=== PATIENT | female | born 1985 | race Caucasian/White ===

== ENCOUNTER 2021-11-15 13:08 | Outpatient (REF) | payer OTHER, SELFPAY ==
[2021-11-15 16:32] LABS: Syphilis Screen Nonreactive (Nonreactive)
[2021-11-16 04:40] LABS: CT PCR NOT DETECTED (Not Detect.); NG PCR NOT DETECTED (Not Detect.)
[2021-11-16 13:03] LABS: BV Int Neg Control Negative (Negative); BV Int Pos Control Positive (Positive)
[2021-11-17 07:56] LABS: HBsAGNum1 0.67 S/CO (0.00-0.99); HIV AB/AG Nonreactive (Nonreactive); HIV Num 1 0.08 S/CO (0.00-0.99); Hepatitis B Surface Antigen Negative (Negative)
[2021-11-17 08:31] LABS: ~HepC Num1 0.07 S/CO (0.00-0.79); ~Hepatitis C Antibody Nonreactive (Nonreactive)
[2021-11-18 09:36] LABS: HPV mRNA E6/E7 rflx Not Detected (Not Detected)
== END 2021-11-15 13:09 | disposition home or self-care (01) ==
LOC: HO.LAB 13:08
PROVIDERS: PCP Internal Medicine; Visit Provider Advanced Practice Midwife
DX: Z01.419 Encounter for gynecological examination (general) (routine) without abnormal findings (principal); Z11.51 Encounter for screening for human papillomavirus (HPV); Z20.2 Contact with and (suspected) exposure to infections with a predominantly sexual mode of transmission; Z87.42 Personal history of other diseases of the female genital tract; Z80.3 Family history of malignant neoplasm of breast
CPT/HCPCS: 36415; 86780; 86803; 87340; 87389; 87480; 87491; 87510; 87591; 87624; 87660; 88142

== ENCOUNTER 2021-12-31 07:44 | Outpatient (REF) | payer OTHER, SELFPAY ==
--- NOTE | ~2021-12-31 | MM_ITS ---
EXAMINATION: MM SCREENING DIGITAL BREAST TOMOSYNTHESIS, BILATERAL CLINICAL INFORMATION: Screening. Asymptomatic. Age 36. No prior breast imaging. Psoriasis including dermal involvement anterior breasts. Family history breast cancer, mother (40's), cousin (40). The lifetime risk of breast cancer based on the Tyrer-Cuzick Model is 40%. COMPARISON: None (current study represents initial baseline exam). TECHNIQUE: Digital breast tomosynthesis is performed in both the craniocaudal and mediolateral oblique views along with computer-aided detection (CAD). Synthesized 2D images are generated from the tomosynthesis. Additional bilateral exaggerated CC views are provided. FINDINGS: The breasts are extremely dense, which lowers the sensitivity of mammography (ACR BI-RADS breast composition Category d). There are no significant masses, abnormal calcifications, or other abnormalities. There is symmetric coarsening stromal markings bilateral axilla versus accessory fibroglandular tissue. No adenopathy. MM/MM tomosynthesis screening BI IMPRESSION: No mammographic evidence of malignancy. ASSESSMENT: BI-RADS 2: Benign RECOMMENDATION: 1. Routine annual mammography screening. 2. The lifetime risk of breast cancer based on the Tyrer-Cuzick Model is 40%. Additional annual adjunct screening with breast MRI may be of benefit in women with a risk score of 20% or greater and dense breast parenchymal pattern on mammography. This patient's information was entered into a reminder system with a target due date for their next mammogram.
== END 2021-12-31 07:45 | disposition home or self-care (01) ==
LOC: HO.MAMMO 07:44
PROVIDERS: PCP Internal Medicine; Visit Provider Advanced Practice Midwife
DX: Z12.31 Encounter for screening mammogram for malignant neoplasm of breast (principal)
CPT/HCPCS: 77063; 77067

== ENCOUNTER 2022-02-14 07:49 | Outpatient (REF) | payer OTHER, SELFPAY ==
--- NOTE | ~2022-02-14 | MR_ITS ---
EXAMINATION: MR BREAST WITHOUT AND WITH CONTRAST, BILATERAL CLINICAL INFORMATION: High-risk screening. COMPARISON: No previous breast MRI. TECHNIQUE: Imaging was performed with a dedicated breast coil. Prior to the administration of contrast, bilateral axial T1 and bilateral axial T2 weighted sequences were obtained. After the uneventful administration of?6 mL of Gadavist, dynamic contrast-enhanced VIBRANT series through the breasts in the axial plane were performed. Subtracted images were performed and reviewed. A delayed sagittal sequence through both breasts was acquired. Additionally, CAD post-processing, including maximum intensity projections, 3-D reconstructions and kinetic analysis, were performed at an independent workstation and reviewed by the interpreting radiologist is a portion of this exam. FINDINGS: There is moderate significant background parenchymal enhancement. LEFT BREAST: There is diffuse background parenchymal enhancement in combination with innumerable foci of enhancement. This somewhat limits the evaluation. In the 3 o'clock position of the left breast, 6.1 cm from the nipple, there is a focus of enhancement measuring 0.4 cm size with somewhat indistinct margins (image 62, series 100). No T2 correlate. Finding demonstrates type II or plateau-type enhancement. Finding is considered indeterminate. MRI guided biopsy is recommended. No other suspicious non-mass or mass enhancement. Review of the T2-weighted images demonstrates a few scattered T2 hyperintense structures which are mostly subcentimeter in size and consistent with cysts. Review of the kinetic images demonstrates no additional suspicious findings. RIGHT BREAST: Similar to the left breast, there is diffuse background parenchymal enhancement in combination with scattered foci of enhancement. In the 5 o'clock position of the right breast, 2.5 cm from the nipple, there is an oval enhancing focus measuring up to 0.5 cm in size (image 74, series 100). This finding demonstrates plateau or type II enhancement. Finding is indeterminate. MRI guided biopsy is recommended for further evaluation. No other suspicious non-mass or mass enhancement within the right breast. Review of the T2-weighted images demonstrates scattered subcentimeter high signal intensity structures consistent with cysts. Review of the kinetic images demonstrates no additional suspicious findings. There is no suspicious internal mammary chain or axillary adenopathy. Limited views of the chest and abdomen are unremarkable. MR/MR breast BI wo/w con IMPRESSION: 1. Indeterminate focus of enhancement, left breast, 3 o'clock. 2. Indeterminate focus of enhancement, right breast, 5 o'clock. ASSESSMENT: LEFT BREAST: BI-RADS 4 - Suspicious abnormality - Biopsy should be considered. RIGHT BREAST: BI-RADS 4 - Suspicious abnormality - Biopsy should be considered. RECOMMENDATIONS: Bilateral MRI guided biopsy. Recommendations called in to Arnold Wise RN at 8:33 AM on 02/17/2022.
== END 2022-02-14 07:50 | disposition home or self-care (01) ==
LOC: HO.MRI 07:49
PROVIDERS: Visit Provider Advanced Practice Midwife
DX: Z12.31 Encounter for screening mammogram for malignant neoplasm of breast (principal); Z87.42 Personal history of other diseases of the female genital tract; Z80.3 Family history of malignant neoplasm of breast
CPT/HCPCS: 77049; A9585

== ENCOUNTER 2022-03-04 07:29 | Outpatient (REF) | payer OTHER, SELFPAY ==
--- NOTE | ~2022-03-04 | MR_ITS ---
EXAMINATION: MR GUIDED VACUUM-ASSISTED CORE BIOPSY BREAST, BILATERAL MM DIGITAL MAMMOGRAPHY POST BIOPSY, BILATERAL CLINICAL INFORMATION: 36-year-old with recent high risk screening MRI showing indeterminate focus of enhancement posterior 3:00 left breast and indeterminate focus of enhancement anterior 5:00 right breast. COMPARISON: Baseline digital breast tomosynthesis 12/31/2021, high risk screening breast MRI 02/14/2022. TECHNIQUE/PROCEDURE: Informed consent was obtained from the patient after discussion of the benefits, risks, and alternatives to biopsy today. Patient appeared to understand. Gave opportunity for questions. Patient signed consent form. Biopsy is performed under MRI guidance using breast surface coil. Imaging is performed without and with use of 5.5 mL Gadavist gadolinium contrast. [email or web address] introducer localization system is used with grid. LEFT BREAST: LESION: Focus of enhancement posterior 3:00, type II kinetics. LOCAL ANESTHESIA: 7 mL carbonated 1% lidocaine; 10 mL 1% lidocaine with epinephrine. NEEDLE: [employer] Atec 9-gauge vacuum assisted core biopsy device. APPROACH: Lateral medial. CORES: 8. CLIP: TriMark Spool/barbell shaped. RIGHT BREAST: Separate new biopsy supplies used for second site. LESION: Focus of enhancement anterior 5:00. LOCAL ANESTHESIA: : 7 mL carbonated 1% lidocaine; 10 mL 1% lidocaine with epinephrine. NEEDLE: [employer]s Atec 9-gauge vacuum assisted core biopsy device. APPROACH: Lateral medial. CORES: 8. CLIP: TriMark cylinder shaped. POSTPROCEDURE DIGITAL MAMMOGRAM, BILATERAL: Mammography is performed using digital mammography in bilateral CC and bilateral MLviews. The breasts are extremely dense, which lowers the sensitivity of mammography (ACR BI-RADS breast composition Category d). The left and right clip markers are deployed and in expected position. No gross hematoma. The patient tolerated the procedure well. No immediate complications. Home instructions reviewed with the patient. Final pathology results are pending. MR/MR guided breast biopsy RT IMPRESSION: 1. Status post MRI guided vacuum-assisted core biopsy bilateral breast with bilateral clip placement. 2. Final pathology results pending. An addendum report will be issued.
--- NOTE | ~2022-03-04 | MR_ITS ---
EXAMINATION: MR GUIDED VACUUM-ASSISTED CORE BIOPSY BREAST, BILATERAL MM DIGITAL MAMMOGRAPHY POST BIOPSY, BILATERAL CLINICAL INFORMATION: 36-year-old with recent high risk screening MRI showing indeterminate focus of enhancement posterior 3:00 left breast and indeterminate focus of enhancement anterior 5:00 right breast. COMPARISON: Baseline digital breast tomosynthesis 12/31/2021, high risk screening breast MRI 02/14/2022. TECHNIQUE/PROCEDURE: Informed consent was obtained from the patient after discussion of the benefits, risks, and alternatives to biopsy today. Patient appeared to understand. Gave opportunity for questions. Patient signed consent form. Biopsy is performed under MRI guidance using breast surface coil. Imaging is performed without and with use of 5.5 mL Gadavist gadolinium contrast. [employer] introducer localization system is used with grid. LEFT BREAST: LESION: Focus of enhancement posterior 3:00, type II kinetics. LOCAL ANESTHESIA: 7 mL carbonated 1% lidocaine; 10 mL 1% lidocaine with epinephrine. NEEDLE: SurT-Quad 22 Atec 9-gauge vacuum assisted core biopsy device. APPROACH: Lateral medial. CORES: 8. CLIP: TriMark Spool/barbell shaped. RIGHT BREAST: Separate new biopsy supplies used for second site. LESION: Focus of enhancement anterior 5:00. LOCAL ANESTHESIA: : 7 mL carbonated 1% lidocaine; 10 mL 1% lidocaine with epinephrine. NEEDLE: Suros Atec 9-gauge vacuum assisted core biopsy device. APPROACH: Lateral medial. CORES: 8. CLIP: TriMark cylinder shaped. POSTPROCEDURE DIGITAL MAMMOGRAM, BILATERAL: Mammography is performed using digital mammography in bilateral CC and bilateral MLviews. The breasts are extremely dense, which lowers the sensitivity of mammography (ACR BI-RADS breast composition Category d). The left and right clip markers are deployed and in expected position. No gross hematoma. The patient tolerated the procedure well. No immediate complications. Home instructions reviewed with the patient. Final pathology results are pending. MR/MR guided breast biopsy LT IMPRESSION: 1. Status post MRI guided vacuum-assisted core biopsy bilateral breast with bilateral clip placement. 2. Final pathology results pending. An addendum report will be issued.
[2022-03-04] MEDS: Lidocaine HCl 1 % MPF 5 ML VIAL SUBCUT ×3 (10:19→10:21)
[2022-03-04] MEDS: Sodium Bicarbonate 8.4% 50 MEQ/50 ML VIAL SUBCUT (10:21)
== END 2022-03-04 07:30 | disposition home or self-care (01) ==
LOC: HO.MRI 07:29
PROVIDERS: Visit Provider Surgery
DX: R92.8 Other abnormal and inconclusive findings on diagnostic imaging of breast (principal); Z91.89 Other specified personal risk factors, not elsewhere classified; Z80.3 Family history of malignant neoplasm of breast
CPT/HCPCS: 19085; 19086; 77062; 77066; 88305; A4648; A9585

== ENCOUNTER 2022-04-06 06:45 | Day surgery (SDC) | payer OTHER, SELFPAY ==
--- NOTE | 2022-03-24 14:58 | P.CONAN_ITS ---
Documented by User: Jocelyn Lopez NP 03/24/22 14:59 HPI - Anesthesia Eval Consult details Narrative: 36yo F for Right Breast Lumpectomy/Needle Loc PMFSH Active Problems Active Problems: All Active Problems (Updated 02/22/22 @ 08:57 by Osito Guallpa MD) At high risk for breast cancer (Acute) Abnormal MRI, breast (Acute) Encounter for screening mammogram for malignant neoplasm of breast (Acute) Well woman exam with routine gynecological exam (Acute) Potential exposure to STD (Acute) Cervical cancer screening (Acute) History of irregular menstrual cycles (Acute) Personal history of ovarian cyst (Acute) Family history of breast cancer in first degree relative (Acute) Family history of diabetes mellitus (Acute) Dysfunctional uterine bleeding (Acute) Psoriasis (Acute) Scar of back (Acute) Encounter for general adult medical examination with abnormal findings (Acute) Past Medical History Medical History Complex ovarian cyst Family History Family History Father Diabetes Heart attack Mother Diabetes Tachycardia Breast cancer Maternal Aunt Breast cancer Maternal Aunt Breast cancer Maternal Aunt Breast cancer Surgical History Surgical History History of ankle surgery History of elbow surgery History of excision of mass History of tonsillectomy History of wisdom tooth extraction Social History Social History Housing: Apartment Alcohol intake: current Alcohol intake frequency: a few times a week Patient Tobacco Use Status: Former Tobacco user Quit Date: 2005 Years Smoked: 10 years Use of substances other than those prescribed or required for medical reasons: No Are you DNR?: No Advance Directives: No Advance Directives Information Provided: Yes Recently lost weight without trying: No Nutrition Risks: No Nutritional Risk Current occupational status: employed Meds Allergies Allergy/AdvReac Type Severity Reaction Status Date / Time Penicillins Allergy Severe RASH FEVER Verified 04/06/22 07:21 cillin Allergy Severe hives Uncoded 02/22/22 08:41 Home Medications Medication Instructions Recorded Confirmed Last Taken Type No Known Home Meds 09/29/21 02/22/22 Unknown History Exam Exam Date and Time: March 24, 2022 4072 Assessment and Plan Assessment Anesthesia Assessment: Chart Reviewed Documented by User: Priyank Francois MD 04/06/22 09:16 [facility] Past Medical History Medical History Complex ovarian cyst Family History Family History Father Diabetes Heart attack Mother Diabetes Tachycardia Breast cancer Maternal Aunt Breast cancer Maternal Aunt Breast cancer Maternal Aunt Breast cancer Family history of problems with anesthesia: No Surgical History Surgical History History of ankle surgery History of elbow surgery History of excision of mass History of tonsillectomy History of wisdom tooth extraction History of Problems with Anesthesia: No Social History Social History Housing: Apartment Alcohol intake: current Alcohol intake frequency: a few times a week Patient Tobacco Use Status: Former Tobacco user Quit Date: 2005 Years Smoked: 10 years Use of substances other than those prescribed or required for medical reasons: No Are you DNR?: No Advance Directives: No Advance Directives Information Provided: Yes Recently lost weight without trying: No Nutrition Risks: No Nutritional Risk Current occupational status: employed Meds Allergies Allergy/AdvReac Type Severity Reaction Status Date / Time Penicillins Allergy Severe RASH FEVER Verified 04/06/22 07:21 cillin Allergy Severe hives Uncoded 02/22/22 08:41 Home Medications Medication Instructions Recorded Confirmed Last Taken Type No Known Home Meds 09/29/21 02/22/22 Unknown History Exam Airway Mallampati Class: I TM Dist: >3cm Neck ROM: Full Loose/Missing/Broken Teeth: Yes and Upper Heart: ok Lungs: ok Assessment and Plan Assessment Anesthesia Assessment: Anesthesia Plan Discussed and Chart Reviewed Final Anesthetic Review Family History of Problems with Anesthesia: No History of Problems with Anesthesia: No NPO: Yes ASA Class: II Final Preanesthetic Review: No Changes in Pt Med Stat, Meds/Allgs Chart Reviewed, Consent Obtained/Reviewed and Anes Risks/Benef Reviewed Patient Risk: Low Procedure Risk: Low Anesthetic Plan Anesthetic Plan: GA and Agree w/ Assess. and Plan Disposition: Standard PACU
[2022-04-05 10:45] VITALS: BMI 22.1
[2022-04-06] VITALS (9 sets, daily range): BP systolic 108–124; BP diastolic 64–77; PULSE 63–76; RESP 12–20; TEMP 36.6–36.8; O2SAT 99–100; BMI 21.4
--- NOTE | ~2022-04-06 | MM_ITS ---
EXAMINATION: MM MAMMOGRAM GUIDED NEEDLE LOCALIZATION BREAST, RIGHT MM NEEDLE LOCALIZATION SPECIMEN FROM THE RIGHT BREAST CLINICAL INFORMATION: Right breast MR biopsy 03/04/2022 with fragments of intraductal papilloma, fibroadenomatous change, PASH, usual ductal hyperplasia. Family history breast cancer including premenopausal cancer in mother and cousin. COMPARISON: MR biopsy and postbiopsy mammography 03/04/2022 TECHNIQUE NEEDLE LOC: Proper informed consent is obtained from the patient after discussion of the procedure, potential risks and complications, and alternatives including declining the procedure today. Patient was given an opportunity for questions. The patient appeared to understand. The patient consented to the procedure and signed the consent form. GUIDANCE: Digital mammography. APPROACH: Medial Lateral. TARGET: Cylinder shaped biopsy clip marker anterior lower inner quadrant. ANESTHESIA: carbonated lidocaine 1%: 15 mL. LOCALIZATION MARKER: [place] [employer]. 7.5 cm length. The skin is prepped and local anesthesia administered. Initial needle placement was short on the CC view. There is dense breast tissue and firm skin. Localization needle removed and discarded. A new set of supplies used along with initial small skin dermatotomy with scalpel. The localization needle is positioned and position assessed with mammography. The wire is hooked into position. [place] needle protector placed. No immediate complication. Procedure results called to Dr. Guallpa prior to surgery. TECHNIQUE SPECIMEN RADIOGRAPH: Imaging of the excised specimen is performed using digital mammography in 1 view. FINDINGS SPECIMEN RADIOGRAPH: The specimen shows the distal needle and distal hookwire are delivered intact. The proximal needle and hookwire are sectioned in the OR prior to delivery to radiology. The biopsy clip marker is identified in the specimen adjacent to the localization device. Results were called to Dr. Osito Guallpa in the operating room at the time of imaging. MM/MM needle loc RT IMPRESSION: 1. Status post right breast needle localization with wire hooked into position. 2. Post operative specimen radiograph obtained.
--- NOTE | 2022-04-06 07:15 | MHC.SHP ---
Pre-Procedural Eval Section A Date of Service: 04/06/22 The patient is an INPATIENT: No Changes since office visit: Yes Patient answered all questions; No Cold of Flu in the past 2 weeks, No New Medical Problems and No Changes in Medication The History & Physical has been completed within 30 days and I have reviewed it.: No Section B Chief Complaint: inconclusive breast findings Details of Present Illness: 37-year-old female found be high risk for breast cancer due to family history, presenting with an abnormal MRI status post bilateral MRI guided biopsies. Patient was found to have fragments of a papilloma in the right breast needle biopsy. She presents today for wider excision of the right breast papilloma. Relevant Family History (Specify if Yes): Yes Relevant Social History: None Present Medications: see Short Stay Collaborative assessment Medical History: No relevant PMH History of Previous Operations: No relevant previous surgery Allergies: Allergies Allergy/AdvReac Type Severity Reaction Status Date / Time Penicillins Allergy Severe RASH FEVER Unverified 02/22/22 08:41 cillin Allergy Severe hives Uncoded 02/22/22 08:41 Review of Systems Sugical H&P ROS: Negative: Constitution, Cardiovascular, Respiratory, Neurological, Psychiatric, Hem-Onc, Allergic/Immunologic, Gastrointestinal, Genitourinary, Musculoskeletal, Integumentary, Endocrine and Eyes/Ears/Nose/Throat Exam Surgical H&P Exam: Normal: HEENT, Normal: Heart, Normal: Lungs, Normal: Extremities, Normal: Abdomen, Normal: Skin and Normal: Neurological Plan Diagnosis/Plan: Unchanged I have reviewed the history and physical and performed a pertinent physical examination on my patient. No changes have occurred unless specified. I reviewed the pathology findings in detail with the patient including the finding of an intraductal papilloma in the right breast. She presents today for wider excision to assure complete removal. After discussion of the procedure, risks, and alternatives, she consents to the right breast lumpectomy with needle localization.
[2022-04-06 07:33] LABS: UPreg QC Valid YES; Urine Pregnancy NEGATIVE (NEGATIVE)
[2022-04-06] MEDS: Lactated Ringers 1,000 ML 100 ML IVCONT (09:16)
[2022-04-06] MEDS: vancomycin HCL 1,000 MG in 0.9 % Sodium Chloride 250 ML 270 MG IV (09:16)
[2022-04-06] MEDS: Lidocaine HCl 1 % 20 ML VIAL SUBCUT (09:23)
[2022-04-06] MEDS: Sodium Bicarbonate 8.4% 50 MEQ/50 ML VIAL SUBCUT (09:25)
--- NOTE | 2022-04-06 10:52 | W.PM.OPN ---
Operative Note Operative Note Date of Service: 04/06/22 Narrative: Preoperative diagnosis: Right breast papilloma Postoperative diagnosis: Same Procedure: Right breast lumpectomy with needle localization Surgeon: Osito Guallpa MD Variety Lathe Operator: No physician Anesthesia: General LMA Indications for procedure: 37-year-old female patient found to be at high risk for breast cancer found to have a right breast papilloma noted on recent right breast MR guided biopsy. She presents today for right breast lumpectomy with needle localization remove the remaining papilloma. Operative findings: Localizing clip noted within the specimen x-ray. The Specimen: Right breast lumpectomy Estimated blood loss: Less than 5 mL Complications: None Procedure details: Patient was brought to the OR and placed in a supine position. After administering general anesthesia the patient's right breast was prepped with ChloraPrep and draped in a sterile fashion. Localizing wire was placed previously in the lower inner quadrant of the right breast. A surgical time-out was called the consent confirmed. Patient received preoperative antibiotics and Venodyne boots were in place. Local anesthesia consisting of 0.5% Sensorcaine was infiltrated below the nipple on the right side. Using the localizing needle as a guide a curvilinear incision was made at the inferior portion of the nipple-areolar complex. Incision was carried out through subcutaneous tissue and superior inferior skin flaps were then created using electrocautery. Breast tissue was noted to be very dense and fibrocystic. Core tissue surrounding the localizing wire was then obtained using a combination of electrocautery dissection and sharp scissor dissection. The specimen was removed and sent to pathology for further examination. Specimen x-ray confirmed the localizing clip within the specimen. Hemostasis was assured using electrocautery. Wounds were irrigated with saline solution suctioned dry. Deep breast tissue was then reapproximated using interrupted 3-0 Polysorb sutures. Superficial breast tissue was reapproximated using interrupted 3-0 Polysorb sutures. Dermis was reapproximated using interrupted 3-0 Polysorb sutures. Skin was then closed using a running subcuticular 4-0 Polysorb suture. Steri-Strips, 2 x 2 gauze and Tegaderm were then applied. The patient tolerated the procedure well. Sponge, instrument, and needle counts reported as correct. She was returned to PACU in stable condition.
[2022-04-06] MEDS: ondansetron HCL 4 MG/2 ML VIAL IVPUSH (11:43)
== END 2022-04-06 12:47 | disposition home or self-care (01) ==
PROVIDERS: Nurse Practitioner; Visit Provider Surgery
PROC: (CPT 19301; principal; 2022-04-06 09:00)
DX: D24.1 Benign neoplasm of right breast (principal); N62 Hypertrophy of breast; Z80.3 Family history of malignant neoplasm of breast; Z91.89 Other specified personal risk factors, not elsewhere classified; N83.299 Other ovarian cyst, unspecified side; Z88.0 Allergy status to penicillin; Z87.891 Personal history of nicotine dependence
CPT/HCPCS: 19301; 19281; 81025; 88307; 88329; A4648; J2250; J2405; J2795; J3010; J3370

== ENCOUNTER 2022-06-29 10:45 | Outpatient (REF) | payer OTHER, SELFPAY ==
--- NOTE | ~2022-06-29 | US_ITS ---
EXAMINATION: US DIAGNOSTIC ULTRASOUND BREAST, RIGHT CLINICAL INFORMATION: Mastodynia. COMPARISON: Mammography of April 06, 2022 and dating back to December 31, 2021. TECHNIQUE: Ultrasound of the breast is performed with real-time lundberg scale imaging and color Doppler. FINDINGS: There is no focal suspicious finding. Scarring is noted extending to the skin surface. No significant edematous change is seen within the tissues. No abnormal fluid collection. No evidence of pseudoaneurysm. Results are discussed with the patient at time of visit. US/US breast RT limited IMPRESSION: No evidence of abscess/fluid collection or pseudoaneurysm. ASSESSMENT: BI-RADS 2: Benign RECOMMENDATION: Diagnostic mammography in 6 months. This patient's information was entered into a reminder system with a target due date for their next mammogram.
== END 2022-06-29 10:46 | disposition home or self-care (01) ==
LOC: HO.MAMMO 10:45
PROVIDERS: PCP Internal Medicine; Visit Provider Surgery
DX: N64.4 Mastodynia (principal)
CPT/HCPCS: 76642

== ENCOUNTER 2022-10-28 08:02 | Outpatient (REF) | payer OTHER, SELFPAY ==
--- NOTE | ~2022-10-28 | MR_ITS ---
EXAMINATION: MR BREAST WITHOUT AND WITH CONTRAST, BILATERAL CLINICAL INFORMATION: High risk screening. Family history of breast cancer (mother, cousin). The estimated lifetime risk of developing breast cancer is 40%. COMPARISON: Portions of a previous MRI 02/14/2022. Mammography (nondiagnostic monitor review): 12/31/2021. TECHNIQUE: A 1.5 T system and a dedicated breast coil. T1-weighted sequences without fat-saturation were obtained prior to the administration of contrast. Fat-saturated T1 and T2-weighted sequences were also acquired. The patient received 5.5 mL of IV gadolinium-based contrast, Gadavist. Multiple sequential dynamic T1-weighted sequences were obtained through both breasts with fat-saturation. Subtracted images were reviewed. CAD postprocessing with 3-D reconstructions, maximum intensity projections and kinetic analysis was performed by the interpreting radiologist at an independent workstation and reviewed as a portion of this exam. FINDINGS: There is significant motion artifact. This precludes assessment of the subtracted series. Amount of Remaining Fibroglandular Signal: There is extreme fibroglandular tissue, which lowers the sensitivity of mammography (ACR BI-RADS breast composition category D).* Background Parenchymal Enhancement: Marked. Symmetry of Background Enhancement: Symmetric. RIGHT BREAST: There are no suspicious findings. Masses: There are no suspicious enhancing masses. Non-mass Enhancement: Marked heterogeneous non-mass background enhancement could obscure a significant abnormality and limits the sensitivity of the exam. Focus: The extensive background enhancement would obscure enhancing foci. Nonenhancing Findings: Associated findings: There are no suspicious associated findings. Susceptibility artifact from previous tissue marker placement. There are multiple areas of T1 hyperintensity. Kinetic Curve Assessment: Limited by motion artifact. Initial Phase: There are no suspicious areas of color signal. Delayed Phase: There are no areas of washout kinetics. LEFT BREAST: There are no suspicious findings. Masses: There are no suspicious enhancing masses. Non-mass Enhancement: Marked heterogeneous nonmass background enhancement could obscure a significant abnormality and limits the sensitivity of the exam. Focus: The extensive background enhancement would obscure enhancing foci. Nonenhancing Findings: Associated Findings: There are no suspicious associated findings. Susceptibility artifact from previous tissue marker placement. There are multiple areas of T1 hyperintensity prior to contrast. Kinetic Curve Assessment: Color mapping limited by motion. Initial Phase: There are no areas of suspicious color signal. Delayed Phase: There are no areas of washout kinetics. The axillary lymph nodes are morphologically normal. No suspicious internal mammary lymph nodes are seen. No suspicious abnormality in the visualized portions of chest or abdomen. MR/MR breast BI wo/w con IMPRESSION: The study is limited by motion. There is marked heterogeneous non-mass background enhancement which could obscure a significant abnormality. No definite suspicious finding in either breast. ASSESSMENT: Right Breast: ACR BI-RADS 2: Benign finding. Left Breast: ACR BI-RADS 2: Benign finding. RECOMMENDATIONS: Continue screening.
== END 2022-10-28 08:03 | disposition home or self-care (01) ==
LOC: HO.MRI 08:02
PROVIDERS: PCP Internal Medicine; Visit Provider Surgery
DX: D24.1 Benign neoplasm of right breast (principal); Z91.89 Other specified personal risk factors, not elsewhere classified
CPT/HCPCS: 77049; A9585

== ENCOUNTER → 2022-11-04 09:50 | Outpatient (BNVA) | payer OTHER, SELFPAY | PROVIDERS: PCP Internal Medicine; Visit Provider Surgery | DX: Z13.89 Encounter for screening for other disorder (principal) ==

== ENCOUNTER 2022-11-25 13:14 | Outpatient (REF) | payer OTHER, SELFPAY ==
--- NOTE | ~2022-11-25 | MM_ITS ---
EXAMINATION: MM DIAGNOSTIC DIGITAL BREAST TOMOSYNTHESIS, BILATERAL US BREAST, TARGETED, RIGHT CLINICAL INFORMATION: Lumpectomy for intraductal papilloma without atypia right breast performed. The lifetime risk of breast cancer based on the Tyrer-Cuzick Model is 32.1%. Additional annual screening with breast MRI may be of benefit in women with a score of 20% or greater. COMPARISON: Mammography: MRI of 10/28/2022 and 03/04/2022 as well as 02/14/2022. Mammography of 04/06/2022 and 03/04/2022 as well as 12/31/2021. TECHNIQUE: Digital breast tomosynthesis is performed in both the craniocaudal and mediolateral oblique views along with computer-aided detection (CAD). Synthesized 2D images are generated from the tomosynthesis. Targeted right breast ultrasound. FINDINGS: The breasts are extremely dense, which lowers the sensitivity of mammography (ACR BI-RADS breast composition Category d). The left breast has a stable parenchymal pattern with very dense parenchyma making evaluation difficult. The right breast does not definitely show abnormality in region of palpable abnormality. At initial time of examination region of increased parenchymal density within the axilla was felt to be stable however it now appears at time of dictation to be somewhat more dense. When patient comes in for aspiration of right breast lesion will perform spot compression views of the region of density and ultrasound of the axilla prior to the aspiration procedure. Targeted right breast ultrasound to region of palpable abnormality was performed by the technologist and following this I scanned as well. Ultrasound images demonstrated a hypoechoic region adjacent to the chest wall at approximately 5 o'clock position where patient felt palpable abnormality. The lesion was wider than tall without internal vascularity and with some increased through sound transmission however the borders could not be well-defined. I cannot be sure that this corresponds to visualized MRI cysts. These images are not seen on the ultrasound study with only the initial technologist images available. This region will be rescanned at time of the scheduled procedure. Results are discussed with the patient at time of visit. Referring provider's office was notified of the above recommendation by breast center patient coordinator. I personally called the patient to explain the need for imaging of the right axilla prior to the aspiration. MM/MM tomosynthesis diagnostic BI IMPRESSION: Right breast probable cyst/seroma for which ultrasound-guided aspiration is recommended. Repeat imaging of right breast axilla for slightly increasing density. Addendum to report will be made after evaluation of the axilla. ASSESSMENT: BI-RADS 4: Suspicious (subcategory 4A: Low suspicion for malignancy) RECOMMENDATION: Ultrasound-guided aspiration/core biopsy right breast lesion, scheduled for 11/29/2022. Reevaluation of right axilla. Re-documenting of right breast hypoechoic lesion with ultrasound to have images within PACS.
== END 2022-11-25 13:15 | disposition home or self-care (01) ==
LOC: HO.MAMMO 13:14
PROVIDERS: PCP Internal Medicine; Visit Provider Surgery
DX: R92.8 Other abnormal and inconclusive findings on diagnostic imaging of breast (principal); Z91.89 Other specified personal risk factors, not elsewhere classified; Z80.3 Family history of malignant neoplasm of breast
CPT/HCPCS: 76642; 77062; 77066

== ENCOUNTER 2022-11-29 07:16 | Outpatient (REF) | payer OTHER, SELFPAY ==
--- NOTE | ~2022-11-29 | MM_ITS ---
EXAMINATION: ULTRASOUND GUIDED CORE BIOPSY BREAST, RIGHT POST PROCEDURE DIGITAL BREAST TOMOSYNTHESIS, RIGHT CLINICAL INFORMATION: Recent palpable concern right breast. Recent targeted ultrasound shows hypoechoic nodule near chest wall 5:00 position approximately 0.8-1.0 cm. Age 37, prior right excision for intraductal papilloma 04/06/2022. Family history breast cancer mother (age 40's), paternal cousin (age 40's). COMPARISON: MRI 10/28/2022, mammography and right breast ultrasound 11/25/2022. FINDINGS: Proper informed consent is obtained from the patient after discussion of the procedure, potential risks and complications, and alternatives. Patient was given an opportunity for questions. The patient appeared to understand. The patient consented to the procedure and signed the consent form. GUIDANCE: Ultrasound-guided; aseptic technique. LESION: Hypoechoic avascular nodule deep 5:00 position overlying chest wall, approximately 1 cm. Differential considerations include complicated cyst, fibrocystic change, focal fibrosis, PASH, other. APPROACH: Oblique lateral medial. ANESTHESIA: 12 mL carbonated 1% lidocaine. DERMATOTOMY: Single skin demetria dermatotomy performed. NEEDLE: Initially, attempted aspiration using 23-gauge and 18-gauge needles is performed under ultrasound guidance. No fluid retrieved. Subsequently, core biopsy is performed using a 14-gauge Achieve core biopsy device with 13.5-gauge co-axial guide needle. CORES: 5. CLIP: HydroMARK; shape: open coil. POST PROCEDURE UNILATERAL DIGITAL MAMMOGRAM: The post biopsy mammogram is performed in separate room using separate digital breast tomosynthesis equipment from the biopsy procedure. CC view is obtained. Synthesized CC view is generated from the tomography. The breasts are extremely dense, which lowers the sensitivity of mammography (breast composition category: d). The clip marker is deployed and in expected position on the CC view. No gross hematoma. The patient tolerated the procedure well. No immediate complications. Home instructions reviewed with the patient. Final pathology results are pending. MM/MM tomosynthesis diagnostic RT IMPRESSION: 1. Status post ultrasound-guided core biopsy right breast. 2. Clip placed: HydroMARK; shape: open coil. 3. Pathology pending. An addendum report will be issued.
[2022-11-29] MEDS: Sodium Bicarbonate 8.4% 50 MEQ/50 ML VIAL SUBCUT (09:17)
[2022-11-29] MEDS: Lidocaine HCl 1 % 20 ML VIAL SUBCUT (09:19)
== END 2022-11-29 07:17 | disposition home or self-care (01) ==
LOC: HO.MAMMO 07:16
PROVIDERS: PCP Internal Medicine; Visit Provider Surgery
DX: N63.14 Unspecified lump in the right breast, lower inner quadrant (principal); N64.4 Mastodynia; R92.8 Other abnormal and inconclusive findings on diagnostic imaging of breast
CPT/HCPCS: 19083; 77061; 77065; 88305; A4648

== ENCOUNTER 2023-04-27 10:44 | Outpatient (AMB) | payer OTHER, SELFPAY ==
--- NOTE | 2023-04-27 10:50 | A.OFFVIS_ITS ---
Intake Vital Signs 04/27/23 10:59 Height 5 ft 4 in Weight 116 lb 2 oz BMI 19.9 BP 151/91 H Blood Pressure Location Lt brachial Position Sitting Pulse 84 Intake Visit Reasons: breast pain Intake Note: Patient is seen in office for follow up visit, following breast pain. Patient c/o: increase pain for the past couple of weeks around the nipple, breast are darker and some redness outside Finance Admin Required: No Food Service Substitute: Food Service Substitute Present Accompanied by: Self / Same As Patient Allergies Penicillins Allergy (Severe, Verified 04/27/23 10:52) RASH FEVER cillin Allergy (Severe, Uncoded 04/27/23 10:52) hives Medication List - Last Reconciled 04/27/23 by Osito Gulalpa MD No Known Home Meds HPI HPI Comments History of Present Illness Details 38-year-old female returning with complaints of severe pain for the pa st several weeks around the nipple with some darker changes in the overlying skin. She has a strong family history of breast cancer with a Tyrer-Cuzick remaining lifetime risk of breast cancer calculated at 40 %. She was placed on the high risk protocol including twice yearly clinical breast examinations, breast MRI and yearly mammograms. Abnormal finding on breast MRI resulted in MR guided biopsy on 03/04/2022. This revealed intraductal papilloma and she subsequently underwent lumpectomy on 04/06/2022. Residual intraductal papilloma was identified with no atypia or malignancy. Genetic testing revealed no clinically significant mutations and no mutations of unknown significance. She underwent an ultrasound-guided core biopsy on 11/29/2022 which was also negative for malignancy. The current symptoms began after hugging a friend which resulted in severe pain in the right chest. She denies any skin redness or nipple discharge. [facility] Medical History Complex ovarian cyst Surgical History History of ankle surgery History of elbow surgery History of excision of mass History of lumpectomy of right breast (04/06/22) History of tonsillectomy History of wisdom tooth extraction Family History Father Diabetes Heart attack Mother Diabetes Tachycardia Breast cancer Maternal Aunt Breast cancer Maternal Aunt Breast cancer Maternal Aunt Breast cancer Social History Housing: Apartment Alcohol intake: current Alcohol intake frequency: a few times a week Patient Tobacco Use Status: Former Tobacco user Quit Date: 2005 Years Smoked: 10 years e-Cigarette/Vaping Use: Never Used service: No Current occupational status: employed Cognitive needs: No Hearing needs: No Vision needs: No Female Reproductive History Menstrual Age of Menarche: 7 Review of Systems Const Denies chills, Denies fever(s) and Denies night sweats Skin/Breast Reports as per HPI Physical Exam Const General: no acute distress; No comfortable Nutritional Appearance: well nourished Orientation/consciousness: patient oriented x3 Limitations: no limitations HEENT Head: Yes normocephalic and Yes atraumatic Ears: hearing grossly normal bilaterally Chest Other: Right breast: Exquisitely tender throughout the central portion of the breast with even light palpation. No definite palpable mass is appreciated although exam is difficult due to the severity of patient's pain. Nipple discharge is identified. No new skin changes appreciated. No axillary lymph nodes appreciated. Left breast: No new skin change, nipple discharge, palpable mass or enlarged lymph nodes. Chest/axillae images: 1. Area of discomfort in the right breast Resp Effort & Inspection: normal respiratory effort Skin General skin exam: no rashes or lesions noted Neuro General: patient oriented x3 Assessment & Plan Assessment & Plan (1) Breast pain, right: Code(s): N64.4 - Mastodynia Plan 38-year-old female patient presenting with increased breast pain in the right breast located mainly in the central portion of the breast. Examination today revealed no suspicious findings although exam is difficult due to patient's tenderness. I recommended further evaluation with mammogram and ultrasound. Patient should return following the study to review the results and discuss treatment options. Orders: Orders MM diagnostic mammo unilat RT Today N64.4 - Mastodynia US breast RT limited Today N64.4 - Mastodynia Coding Level of Care Code Est Pt Level 3 (40358) Diagnoses Breast pain, right N64.4
[2023-04-27 10:59] VITALS: BP 151/91; PULSE 84; BMI 19.9
== END 2023-04-27 11:31 | disposition home or self-care (01) ==
PROVIDERS: PCP Internal Medicine; Visit Provider Surgery
DX: N64.4 Mastodynia (principal)
CPT/HCPCS: 99213

== ENCOUNTER → 2023-04-27 10:44 | Outpatient (BNVA) | payer OTHER, SELFPAY | PROVIDERS: PCP Internal Medicine; Visit Provider Surgery ==

== ENCOUNTER 2023-05-03 07:40 | Outpatient (REF) | payer OTHER, SELFPAY ==
--- NOTE | ~2023-05-03 | MM_ITS ---
EXAMINATION: MM DIAGNOSTIC DIGITAL BREAST TOMOSYNTHESIS, RIGHT US BREAST LIMITED, RIGHT MAMMOGRAPHY: CLINICAL INFORMATION: 38-year-old female complaining of severe retroareolar right breast pain. Patient has history of benign excisional biopsy right breast yielding intraductal papilloma without atypia, and PASH. Patient also has history of benign left-sided biopsy. Patient has history of bilateral parenchymal cysts. COMPARISON: Mammography: 11/29/2022, 11/25/2022, 03/04/2022, 12/31/2021. MRI breasts 10/28/2022, 02/14/2022. TECHNIQUE: Digital right breast tomosynthesis is performed in both the craniocaudal and mediolateral oblique views along with computer-aided detection (CAD). Synthesized 2D images are generated from the tomosynthesis. FINDINGS: The breasts are extremely dense, which lowers the sensitivity of mammography (ACR BI-RADS breast composition Category d). There are circumscribed round and oval masses in the right breast, isodense, known to represent benign simple cysts on recent MRI. No abnormality in the retroareolar region or elsewhere to explain breast pain. No developing mass, developing architectural distortion, or developing suspicious grouped calcifications. The overall parenchymal pattern appears similar. Post benign biopsy clip in the far medial right breast. Mild scarring inferior right breast from prior lumpectomy. ULTRASOUND: CLINICAL INFORMATION: Retroareolar pain right breast. COMPARISON: 06/29/2022, and 11/25/2022. TECHNIQUE: Targeted sonographic evaluation right breast was performed using a high frequency linear transducer. Attention was paid to the purported areas of breast pain as indicated by the patient. Selected archived documentation. FINDINGS: RIGHT BREAST: There is dense fibroglandular tissue. No suspicious mass is seen. There is no pathologic acoustic shadowing. No duct ectasia or intraductal mass is evident. No sonographic correlate to the region of retroareolar right breast pain. MM/MM tomosynthesis diagnostic RT IMPRESSION: No mammographic or sonographic evidence of malignancy in the right breast. Stable benign findings as detailed. No mammographic or sonographic correlate to the purported right breast pain retroareolar region. Recommend clinical management. Otherwise, recommend the patient return to routine screening mammography to include both breasts. OVERALL ASSESSMENT: Mammography: BI-RADS 2 - Benign Findings Ultrasound: BI-RADS 2 - Benign Findings RECOMMENDATION: 1 year F/U Results were provided to the patient at time of visit by the technologist. This patient's information was entered into a reminder system with a target due date for their next mammogram.
== END 2023-05-03 07:41 | disposition home or self-care (01) ==
LOC: HO.MAMMO 07:40
PROVIDERS: PCP Internal Medicine; Visit Provider Surgery
DX: N64.4 Mastodynia (principal)
CPT/HCPCS: 76642; 77061; 77065

== ENCOUNTER → 2023-05-03 08:00 | Outpatient (BNV) | payer OTHER, SELFPAY | PROVIDERS: PCP Internal Medicine; Visit Provider Radiology Diagnostic Radiology | DX: N60.11 Diffuse cystic mastopathy of right breast (principal); N64.4 Mastodynia | CPT/HCPCS: 76642; 77061; 77065 ==

== ENCOUNTER 2023-05-12 08:47 | Outpatient (AMB) | payer OTHER, SELFPAY ==
[2023-05-12 08:55] VITALS: BP 114/66; PULSE 75; BMI 20.2
--- NOTE | 2023-05-12 08:55 | A.OFFVIS_ITS ---
Intake Vital Signs 05/12/23 08:55 Height 5 ft 4 in Weight 117 lb 8 oz BMI 20.2 BP 114/66 Blood Pressure Location Lt brachial Position Sitting Pulse 75 Intake Visit Reasons: 6 month breast exam Intake Note: Patient is seen in office for 6 month follow up visit, breast exam. Patient c/o: continued pain to the touch , no changes since last visit. Groover And Striper Operator Required: No Assistant Health Educator: Assistant Health Educator Present Accompanied by: Self / Same As Patient Allergies Penicillins Allergy (Severe, Verified 05/12/23 09:01) RASH FEVER cillin Allergy (Severe, Uncoded 05/12/23 09:01) hives Medication List - Last Reconciled 05/12/23 by Osito Guallpa MD tamoxifen 10 mg PO DAILY HPI HPI Comments History of Present Illness Details 38-year-old female returning with contin ued complaints of severe pain for the past several weeks around the nipple with some darker changes in the overlying skin. She has a strong family history of breast cancer with a Tyrer- Cuzick remaining lifetime risk of breast cancer calculated at 40 %. She was placed on the high risk protocol including twice yearly clinical breast examinations, breast MRI and yearly mammograms. Abnormal finding on breast MRI resulted in MR guided biopsy on 03/04/2022. This revealed intraductal papilloma and she subsequently underwent lumpectomy on 04/06/2022. Residual intraductal papilloma was identified with no atypia or malignancy. Genetic testing revealed no clinically significant mutations and no mutations of unknown significance. She underwent an ultrasound-guided core biopsy on 11/29/2022 which was also negative for malignancy. The current symptoms began after hugging a friend which resulted in severe pain in the right chest. She denies any skin redness or nipple discharge. She subsequently underwent workup with a diagnostic mammogram and ultrasound of the right breast on 05/03/2023. This revealed no mammographic or sonographic evidence of malignancy in the right breast. No explanation for the patient's continued breast pain is identified. [facility] Medical History Complex ovarian cyst Surgical History History of lumpectomy of right breast (04/06/22) History of excision of mass History of wisdom tooth extraction History of tonsillectomy History of ankle surgery History of elbow surgery Family History Father Diabetes Heart attack Mother Diabetes Tachycardia Breast cancer Maternal Aunt Breast cancer Maternal Aunt Breast cancer Maternal Aunt Breast cancer Social History Housing: Apartment Alcohol intake: current Alcohol intake frequency: a few times a week Patient Tobacco Use Status: Former Tobacco user Quit Date: 2005 Years Smoked: 10 years e-Cigarette/Vaping Use: Never Used service: No Current occupational status: employed Cognitive needs: No Hearing needs: No Vision needs: No Female Reproductive History Menstrual Age of Menarche: 7 Physical Exam Vital Signs: Last Vital Signs Pulse 75 05/12/23 08:55 BP 114/66 05/12/23 08:55 BMI result Body Mass Index 20.2 Const General: no acute distress Nutritional Appearance: well nourished Orientation/consciousness: patient oriented x3 Limitations: no limitations Chest Other: No change in the right breast examination. Tender to light touch. Skin Other: Warm, dry, psoriasis Neuro General: patient oriented x3 Assessment & Plan Assessment & Plan (1) Breast mass, right: Code(s): N63.10 - Unspecified lump in the right breast, unspecified quadrant Qualifiers: Breast mass location: subareolar Qualified Code(s): N63.41 - Unspecified lump in right breast, subareolar Plan Patient with continued severe breast pain with no evidence of cyst or infection. No suspicious finding noted on mammogram or ultrasound. I recommended a trial of tamoxifen low-dose for 3 months. We discussed potential side effects of the medication and recommended she call should any developed. She should follow up in 1 month to assess patient's symptoms. She expressed understanding and agrees with the plan. Medications: New tamoxifen 10 mg PO DAILY 90 tabs 1RF N63.10 - Unspecified lump in the right breast, unspecified quadrant Coding Level of Care Code Est Pt Level 3 (36855) Diagnoses Subareolar mass of right breast N63.41 Breast mass location: subareolar
== END 2023-05-12 09:08 | disposition home or self-care (01) ==
PROVIDERS: PCP Internal Medicine; Visit Provider Surgery
DX: N63.41 Unspecified lump in right breast, subareolar (principal)
CPT/HCPCS: 99213

== ENCOUNTER → 2023-05-12 08:47 | Outpatient (BNVA) | payer OTHER, SELFPAY | PROVIDERS: PCP Internal Medicine; Visit Provider Surgery | DX: N63.10 Unspecified lump in the right breast, unspecified quadrant (principal) ==

== ENCOUNTER 2023-06-23 08:58 | Outpatient (AMB) | payer OTHER, SELFPAY ==
[2023-06-23 09:18] VITALS: BP 131/80; PULSE 80; BMI 19.6
--- NOTE | 2023-06-23 09:18 | MHC.OFFVIS ---
Intake Vital Signs 06/23/23 09:18 Height 5 ft 4 in Weight 114 lb BMI 19.6 BP 131/80 Blood Pressure Location Lt brachial Position Sitting Pulse 80 Intake Visit Reasons: 1 mth follow up breast exam Intake Note: Patient is seen in office for one month follow up visit, breast exam. 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 She has a strong family history of breast cancer with a Tyrer-Cuzick remaining lifetime risk of breast cancer calculated at 40 %. She was placed on the high risk protocol including twice yearly clinical breast examinations, breast MRI and yearly mammograms. Abnormal finding on breast MRI resulted in MR guided biopsy on 03/04/2022. This revealed intraductal papilloma and she subsequently underwent lumpectomy on 04/06/2022. Residual intraductal papilloma was identified with no atypia or malignancy. Genetic testing revealed no clinically significant mutations and no mutations of unknown significance. She underwent an ultrasound-guided core biopsy on 11/29/2022 which was also negative for malignancy. She subsequently underwent workup with a diagnostic mammogram and ultrasound of the right breast on 05/03/2023. This revealed no mammographic or sonographic evidence of malignancy in the right breast. She was started on tamoxifen 1 month ago 10 mg p.o. daily. After starting the medication she developed body aches, chills, loss of appetite, weight loss for approximately 4 days. The medication did minimize her breast pain. She subsequently stopped the medication but noted the chest pain to increase. She subsequently restarted the medication but is now taking the medication every other day. This has minimize the side effects and help to improve her breast pain. She continues to report weight loss which she has dealt with all her life. [facility] Medical History Complex ovarian cyst Surgical History History of lumpectomy of right breast (04/06/22) History of excision of mass History of wisdom tooth extraction History of tonsillectomy History of ankle surgery History of elbow surgery Family History Father Diabetes Heart attack Mother Diabetes Tachycardia Breast cancer Maternal Aunt Breast cancer Maternal Aunt Breast cancer Maternal Aunt Breast cancer Social History Housing: Apartment Alcohol intake: current Alcohol intake frequency: a few times a week Patient Tobacco Use Status: Former Tobacco user Quit Date: 2005 Years Smoked: 10 years e-Cigarette/Vaping Use: Never Used service: No Current occupational status: employed Cognitive needs: No Hearing needs: No Vision needs: No Female Reproductive History Menstrual Age of Menarche: 7 Review of Systems Const Denies chills, Denies fever(s) and Denies night sweats Skin/Breast Reports as per HPI Physical Exam Vital Signs: Last Vital Signs Pulse 80 06/23/23 09:18 BP 131/80 06/23/23 09:18 BMI result Body Mass Index 19.6 Const General: no acute distress Nutritional Appearance: well nourished Orientation/consciousness: patient oriented x3 Limitations: no limitations Chest Other: Much improved with decreased bilateral breast pain except in the periareolar locations. No new skin changes, nipple discharge, palpable mass, or enlarged lymph nodes on either side. Skin Other: Warm, dry, psoriasis Neuro General: patient oriented x3 Assessment & Plan Assessment & Plan (1) At high risk for breast cancer: Code(s): Z91.89 - Other specified personal risk factors, not elsewhere classified (2) Papilloma of right breast: Code(s): D24.1 - Benign neoplasm of right breast (3) Bilateral mastodynia: Code(s): N64.4 - Mastodynia Plan 38-year-old female patient with persistent mastodynia found to be at high risk for breast cancer due to family history. She was started on tamoxifen initially at 10 mg daily but developed severe side effects. She did note improvement in her breast pain however while on the medication. After stopping the medication for several days the pain returned in the breast but the side effects resolved. She is now taking the medication every other day which seems to be helping the breast pain and minimizing the side effects. I recommended continuing at this level of tamoxifen for the next 3 months. She will follow-up at that time for repeat examination. She is welcome to call sooner for any new concerns. Coding Level of Care Code Est Pt Level 3 (38200) Diagnoses At high risk for breast cancer Z91.89 Papilloma of right breast D24.1 Bilateral mastodynia N64.4
== END 2023-06-23 09:27 | disposition home or self-care (01) ==
PROVIDERS: PCP Internal Medicine; Visit Provider Surgery
DX: N64.4 Mastodynia (principal); D24.1 Benign neoplasm of right breast; Z91.89 Other specified personal risk factors, not elsewhere classified
CPT/HCPCS: 99213

== ENCOUNTER → 2023-06-23 08:58 | Outpatient (BNVA) | payer OTHER, SELFPAY | PROVIDERS: PCP Internal Medicine; Visit Provider Surgery | DX: N63.10 Unspecified lump in the right breast, unspecified quadrant (principal) ==

== ENCOUNTER 2023-09-15 08:49 | Outpatient (AMB) | payer OTHER, SELFPAY ==
--- NOTE | 2023-09-15 08:50 | MHC.OFFVIS ---
Intake Vital Signs 09/15/23 08:57 Height 5 ft 4 in Weight 115 lb 4 oz BMI 19.8 BP 112/70 Blood Pressure Location Lt brachial Position Sitting Pulse 77 Intake Visit Reasons: 3 mth follow up breast exam Intake Note: Patient is seen in office for 3 month follow up visit, breast exam. Pt c/o: felt a lump on the right breast around the nipple area, onset couple weeks, continued pain on both breast to the touch, is done with the Tamoxifen u/s & mm:05/03/23 Film Cleaner Required: No Accompanied by: Self / Same As Patient Allergies Penicillins Allergy (Severe, Verified 09/15/23 08:58) RASH FEVER cillin Allergy (Severe, Uncoded 09/15/23 08:58) hives Medication List - Last Reconciled 09/15/23 by Osito Guallpa MD tamoxifen 10 mg PO DAILY HPI HPI Comments History of Present Illness Details 38-year-old female returning for follow-up examination after starting tamoxifen for breast pain. She has a strong family history of breast cancer with a Tyrer-Cuzick remaining lifetime risk of breast cancer calculated at 40 %. She was placed on the high risk protocol including twice yearly clinical breast examinations, breast MRI and yearly mammograms. Abnormal finding on breast MRI resulted in MR guided biopsy on 03/04/2022. This revealed intraductal papilloma and she subsequently underwent lumpectomy on 04/06/2022. Residual intraductal papilloma was identified with no atypia or malignancy. Genetic testing revealed no clinically significant mutations and no mutations of unknown significance. She underwent an ultrasound-guided core biopsy on 11/29/2022 which was also negative for malignancy. She subsequently underwent workup with a diagnostic mammogram and ultrasound of the right breast on 05/03/2023. This revealed no mammographic or sonographic evidence of malignancy in the right breast. She was started on tamoxifen 10 mg p.o. daily. After starting the medication she developed body aches, chills, loss of appetite, weight loss for approximately 4 days. The medication did minimize her breast pain. She subsequently stopped the medication but noted the chest pain to increase. She subsequently restarted the medication but is now taking the medication every other day. This has minimize the side effects and help to improve her breast pain. Overall she feels improved with occasional discomfort in the breast. She is completed the current prescription but is willing to restart the medication for another short period. She continues to report weight loss which she has dealt with all her life. [facility] Medical History Complex ovarian cyst Surgical History History of lumpectomy of right breast (04/06/22) History of excision of mass History of wisdom tooth extraction History of tonsillectomy History of ankle surgery History of elbow surgery Family History Father Diabetes Heart attack Mother Diabetes Tachycardia Breast cancer Maternal Aunt Breast cancer Maternal Aunt Breast cancer Maternal Aunt Breast cancer Social History Housing: Apartment Alcohol intake: current Alcohol intake frequency: a few times a week Patient Tobacco Use Status: Former Tobacco user Quit Date: 2005 Years Smoked: 10 years e-Cigarette/Vaping Use: Never Used service: No Current occupational status: employed Cognitive needs: No Hearing needs: No Vision needs: No Female Reproductive History Menstrual Age of Menarche: 7 Review of Systems Const Denies chills, Denies fever(s) and Denies night sweats Skin/Breast Reports as per HPI Physical Exam Vital Signs: Last Vital Signs Pulse 77 09/15/23 08:57 BP 112/70 09/15/23 08:57 BMI result Body Mass Index 19.8 Const General: no acute distress Nutritional Appearance: well nourished Orientation/consciousness: patient oriented x3 Limitations: no limitations Chest Other: Bilateral fibrocystic change noted with marked improvement in the bilateral breast pain. Mild scar tissue noted in the juliana areolar region right breast from previous surgery. No suspicious findings in either breast. No new skin change, no nipple discharge, no enlarged lymph nodes. Bilateral psoriasis unchanged. Skin Other: Warm, dry, psoriasis Neuro General: patient oriented x3 Assessment & Plan Assessment & Plan (1) Bilateral mastodynia: Code(s): N64.4 - Mastodynia (2) At high risk for breast cancer: Code(s): Z91.89 - Other specified personal risk factors, not elsewhere classified (3) Papilloma of right breast: Code(s): D24.1 - Benign neoplasm of right breast Plan 38-year-old female patient with a history of mastodynia, and strong family history of breast cancer. She was started on low-dose tamoxifen for breast pain which does seem to help her symptoms. Current examination reveals marked improvement in her overall breast pain and no new suspicious findings. We will continue tamoxifen for another 3 months after which it will be stopped. She will be due for a mammogram in November 2023. She will follow-up in approximately 6 months, sooner p.r.n.. Orders: Orders MM diagnostic mammo BI 11/27/23 N64.4 - Mastodynia, Z91.89 - Other specified personal risk factors, not elsewhere classified Medications: Refilled tamoxifen 10 mg PO DAILY 90 tabs 1RF N63.10 - Unspecified lump in the right breast, unspecified quadrant Coding Level of Care Code Est Pt Level 3 (72606) Diagnoses Bilateral mastodynia N64.4 At high risk for breast cancer Z91.89 Papilloma of right breast D24.1
[2023-09-15 08:57] VITALS: BP 112/70; PULSE 77; BMI 19.8
== END 2023-09-15 09:08 | disposition home or self-care (01) ==
PROVIDERS: PCP Internal Medicine; Visit Provider Surgery
DX: N64.4 Mastodynia (principal); D24.1 Benign neoplasm of right breast; Z91.89 Other specified personal risk factors, not elsewhere classified
CPT/HCPCS: 99213

== ENCOUNTER → 2023-09-15 08:49 | Outpatient (BNVA) | payer OTHER, SELFPAY | PROVIDERS: PCP Internal Medicine; Visit Provider Surgery | DX: N63.10 Unspecified lump in the right breast, unspecified quadrant (principal) ==

== ENCOUNTER 2023-10-27 10:24 | Outpatient (AMB) | payer OTHER, SELFPAY ==
--- NOTE | 2023-10-27 10:35 | A.OFFPC_ITS ---
Vital Signs 10/27/23 10:36 Height 5 ft 4 in Weight 118 lb 4 oz BMI 20.3 BP 122/78 Blood Pressure Location Lt brachial Position Sitting Pulse 68 Pulse Source Pulse Oximeter Pulse Oximetry (%) 100 Oxygen Delivery Method Room Air Intake Visit Reasons: Annual PE Allergies Penicillins Allergy (Severe, Verified 10/27/23 10:36) RASH FEVER cillin Allergy (Severe, Uncoded 09/15/23 08:58) hives Medication List - Last Reconciled 10/27/23 by Mike Kimball MD tamoxifen 10 mg PO DAILY Tobacco use date assessed: 10/27/23 Dental Screening Dental Screen Date: 10/27/23 Did you have a dental visit in the last 12 months?: Yes Did you have a dental problem in the last 6 months where you did not have access to dental care?: No Was dental information given to patient?: Patient has dentist HPI Annual PE HPI Details History of right breast papilloma currently taking tamoxifen every other day through Dr. Guallpa Psoriasis, patient says that she has seen district loss prevention manager and has tried all treatments which has not helped her Currently taking using no creams, have sent clobetasol cream she may use it up to 3 times a day until rash stable 10 take a break for few days and may restart. Lab order placed to be done fasting Patient says that she has seen OBGYN in 2021 and she will call book her appointment again Breast exam through Dr. Guallpa [facility] Medical History Complex ovarian cyst Surgical History History of lumpectomy of right breast (04/06/22) History of excision of mass History of wisdom tooth extraction History of tonsillectomy History of ankle surgery History of elbow surgery Family History Father Diabetes Heart attack Mother Diabetes Tachycardia Breast cancer Maternal Aunt Breast cancer Maternal Aunt Breast cancer Maternal Aunt Breast cancer Social History Housing: Apartment Alcohol intake: current Alcohol intake frequency: a few times a week Patient Tobacco Use Status: Former Tobacco user Quit Date: 2005 Years Smoked: 10 years e-Cigarette/Vaping Use: Never Used service: No Current occupational status: employed Cognitive needs: No Hearing needs: No Vision needs: No Female Reproductive History Menstrual Age of Menarche: 7 Questionnaire PHQ-9 Over the last 2 weeks, how often have you been bothered by any of the following problems? 1. Little interest or pleasure in doing things: not at all 2. Feeling down, depressed, or hopeless: not at all 3. Trouble falling or staying asleep, or sleeping too much: not at all 4. Feeling tired or having little energy: not at all 5. Poor appetite or overeating: not at all 6. Feeling bad about yourself - or that you are a failure or have let yourself or your family down: not at all 7. Trouble concentrating on things, such as reading the newspaper or watching television: not at all 8. Moving or speaking so slowly that other people could have noticed. Or the opposite - being so fidgety or restless that you have been moving around a lot more than usual: not at all 9. Thoughts that you would be better off or of hurting yourself in some way: not at all Total score: 0 Depression Screening Interpretation: Negative Depression Screening Done: Yes 81404 - PHQ-9 Billing: Yes Source: Developed by Drs. Tiago Zelaya, Jes Hussein, Donell Fabian and colleagues, with an educational don from [employer]. Thrive Questionnaire Date Thrive assessed: 10/27/23 I am a: Patient What is your living situation today?: I have a steady place to live Within the past 12 months, did the food you bought not last and you didn't have the money to get more?: Never true Within the past 12 months, did you worry whether your food would run out before you got money to buy more?: Never true Do you have trouble paying for medicines?: No Do you have trouble getting transportation to medical appointments?: No Do you have trouble paying your heating and electricity bill?: No Do you have trouble taking care of your child, family member or friend?: No Do you have trouble with day-to-day activities such as bathing, preparing meals, shopping, managing finances, etc.?: No Are you currently unemployed and looking for a job?: No Are you interested in more education?: No Please select the resources that you would like help with: None Currently or been in a relationship where the following occur: no concerns reported THRIVE Score: 0 AUDIT C Alcohol Use Questionnaire (AUDIT-C) 1. How often do you have a drink containing alcohol?: 2-4 times a month 2. How many drinks containing alcohol do you have on a typical day when you are drinking?: 1 or 2 3. How often do you have six or more drinks on one occasion?: Less than monthly Total Score: 3 Score Reviewed/Action Taken: Yes AMANDEEP-7 AMB Questionnaire AMANDEEP-7 Date AMANDEEP - 7 assessed: 10/27/23 Feeling nervous, anxious, or on edge: 0 = Not at all Not being able to stop or control worryin = Not at all Worrying too much about different things: 0 = Not at all Trouble relaxin = Not at all Being so restless that it is hard to sit still: 0 = Not at all Becoming easily annoyed or irritable: 1 = Several days Feeling afraid as if something awful might happen: 0 = Not at all Total AMANDEEP-7 score (0-4 normal; 5-9 mild; 10-14 moderate; 15-21 severe): 1 Source: Developed by Drs. Tiaog Zelaya, Jes Hussein, Donell Fabian and colleagues, with an educational don from [employer]. AMANDEEP-7 Assessment Billing AMANDEEP-7 Assessment Tool: AMANDEEP-7 Assessment 80367 Review of Systems Const Denies chills, Denies fever(s) and Denies headache(s) Eyes Denies blurry vision ENT Denies headache(s), Denies nasal discharge, Denies nasal obstruction, Denies odynophagia and Denies sinus pain Card Denies chest pain at rest and Denies chest pain with activity Resp Denies cough and Denies hemoptysis GI Denies diarrhea, Denies odynophagia, Denies vomiting and Denies hematemesis Reports as per HPI Musc Denies abnormal gait Skin/Breast Reports as per HPI Neuro Denies Neuro-related abnormal movements, Denies Abnormal speech present, Denies abnormal gait, Denies headache(s) and Denies Sensory deficit (Neuro) Psych Denies mood swings and Denies paranoia Endo Reports as per HPI Chris/Lymph Reports as per HPI Aller/Immun Reports as per HPI Physical exam (Primary Care) Vital Signs: Last Vital Signs Pulse 68 10/27/23 10:36 BP 122/78 10/27/23 10:36 Pulse Ox 100 10/27/23 10:36 Oxygen Delivery Method Room Air 10/27/23 10:36 BMI result Body Mass Index 20.3 Tobacco/Smoking Status: Tobacco use Status Tobacco use date assessed 10/27/23 10/27/23 10:37 Patient Tobacco Use Status Former Tobacco user 10/27/23 10:37 e-Cigarette/Vaping Use Never Used 10/27/23 10:37 PHQ-9: PHQ-9 Score PHQ-9: Total score 0 10/27/23 11:09 Depression Screening Interpretation: Negative Thrive Assessment: Date of Thrive Assessment Date Thrive assessed 10/27/23 10/27/23 10:37 Currently or been in a relationship where the following occur: no concerns reported Const General: cooperative, comfortable and no acute distress Orientation/consciousness: patient oriented x3 HENMT Head: Yes normocephalic and Yes atraumatic Eyes General: appearance normal, both eyes and all related structures Pupils: Equal, round and reactive pupils present EOM: EOMs intact bilaterally Neck Neck: Yes supple and No lymphadenopathy Thyroid: Thyroid normal Lymphatic: no lymphadenopathy noted Resp Effort & Inspection: normal respiratory effort and able to speak in complete sentences Auscultation: clear to auscultation bilaterally Cardio Heart sounds: S1 normal heart sound present and S2 normal heart sound present GI Palpation (GI): Soft to palpation and nontender Auscultation: normal bowel sounds General: Yes no CVA tenderness Back/Spine/Pelvis Back: no CVA tenderness Skin Other: Large psoriatic patch in the back General skin exam: elasticity normal and turgor normal Neuro General: patient oriented x3 and gait normal Cranial nerves: Yes Equal, round and reactive pupils present Speech: No Abnormal speech present Sensory Exam: No Sensory deficit (Neuro) Coordination: tandem gait normal and Romberg test negative Extrem General: Yes normal exam except as noted and No edema Assessment and Plan Assessment & Plan (1) Psoriasis: Code(s): L40.9 - Psoriasis, unspecified (2) Papilloma of right breast: Code(s): D24.1 - Benign neoplasm of right breast (3) Encounter for general adult medical examination with abnormal findings: Code(s): Z00.01 - Encounter for general adult medical examination with abnormal findings Plan History of right breast papilloma currently taking tamoxifen every other day through Dr. Guallpa Psoriasis, patient says that she has seen district loss prevention manager and has tried all treatments which has not helped her Currently taking using no creams, have sent clobetasol cream she may use it up to 3 times a day until rash stable 10 take a break for few days and may restart. Lab order placed to be done fasting Patient says that she has seen OBGYN in 2021 and she will call book her appointment again Breast exam through Dr. Guallpa Orders: Orders Comprehensive [place]. Panel Fast Today D24.1 - Benign neoplasm of right breast, L40.9 - Psoriasis, unspecified, Z00.01 - Encounter for general adult medical examination with abnormal findings Lipid Panel Today D24.1 - Benign neoplasm of right breast, L40.9 - Psoriasis, unspecified, Z00.01 - Encounter for general adult medical examination with abnormal findings Complete Blood Count Auto Diff Today D24.1 - Benign neoplasm of right breast, L40.9 - Psoriasis, unspecified, Z00.01 - Encounter for general adult medical examination with abnormal findings TSH reflex Free T4 Today D24.1 - Benign neoplasm of right breast, L40.9 - Psoriasis, unspecified, Z00.01 - Encounter for general adult medical examination with abnormal findings Medications: New clobetasol 0.05% 1 appl topical BID 60 grams 2RF Psoriasis 2 weeks Coding Level of Care Code Est Pt Prev Care 40-64y(92523) Diagnoses Psoriasis L40.9 Papilloma of right breast D24.1 Encounter for general adult medical examination with abnormal findings Z00.01 Additional Codes AMANDEEP-7 Assessment Billing - AMANDEEP-7 Assessment Tool: AMANDEEP-7 Assessment 25696 ([id number])
[2023-10-27 10:36] VITALS: BP 122/78; PULSE 68; O2SAT 100; BMI 20.3
== END 2023-10-27 11:34 | disposition home or self-care (01) ==
PROVIDERS: PCP Internal Medicine; Visit Provider Internal Medicine
DX: Z00.00 Encounter for general adult medical examination without abnormal findings (principal); L40.9 Psoriasis, unspecified; D24.1 Benign neoplasm of right breast
CPT/HCPCS: 99396

== ENCOUNTER 2023-12-01 11:00 | Outpatient (REF) | payer OTHER, SELFPAY ==
--- NOTE | ~2023-12-01 | US_ITS ---
EXAMINATION: MM DIAGNOSTIC DIGITAL BREAST TOMOSYNTHESIS, BILATERAL US BREAST LIMITED, BILATERAL MAMMOGRAPHY: CLINICAL INFORMATION: 38-year-old female complaining of severe retroareolar right breast pain. Patient is also complaining of a new palpable abnormality in the 11:00 axis right breast periareolar region. 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 Patient also has history of benign bilateral needle biopsies. Patient has history of bilateral parenchymal simple cysts. COMPARISON: Mammography: Mammography: 05/03/2023, 11/29/2022, 11/25/2022, 03/04/2022, 12/31/2021. MRI breasts 10/28/2022, 02/14/2022. TECHNIQUE: Digital breast tomosynthesis is performed in both the craniocaudal and mediolateral oblique views along with computer-aided detection (CAD). Synthesized 2D images are generated from the tomosynthesis. In addition, full-field bilateral 3-D mediolateral views were obtained. FINDINGS: The breasts are extremely dense, which lowers the sensitivity of mammography (ACR BI-RADS breast composition Category d). There are several small circumscribed round and oval masses in both breasts, isodense, largely obscured by the extremely dense parenchyma, known to represent benign simple cysts on recent MRI. No abnormality in the retroareolar region or elsewhere to explain breast pain. No mammographic correlate to the palpable focus 11:00 right periareolar. No developing mass, developing architectural distortion, or developing suspicious grouped calcifications in either breast. The overall extremely dense parenchymal pattern appears similar. Post benign biopsy clip in the far medial right breast. Post benign biopsy clip evident in the posterior upper outer left breast. Mild scarring inferior periareolar right breast from prior lumpectomy. ULTRASOUND: CLINICAL INFORMATION: As above. Bilateral breast pain radiating posterior breasts to nipple regions. Palpable focus of abnormality 11:00 right breast periareolar. COMPARISON: 05/03/2023, 11/25/2022, 06/29/2022. TECHNIQUE: Targeted sonographic evaluation was performed using a high frequency linear transducer. Selected archived documentation. FINDINGS: RIGHT BREAST: There is dense fibroglandular tissue which is also fibrocystic. In the 11:00 axis, 1 cm from the nipple, correlating with the palpable region are 2 directly abutting simple cysts, the more superficial measuring 5 mm in the deeper measuring 4 mm. These likely correlate with the area of palpable concern. No suspicious masses or areas of architectural distortion or areas of abnormal shadowing. LEFT BREAST: There are several simple cysts present in the left breast, within dense fibrocystic tissue. At the 2:00 axis, 5cm from nipple, there is a 9 x 6 x 7 mm simple cyst. At the 6:00 axis, 2 cm from the nipple, there is an oval simple cyst measuring 9 mm in diameter. In the retroareolar left breast at 11:00 axis there is a 9 x 7 x 7 mm simple cyst. No suspicious masses, areas of architectural distortion, or areas of abnormal shadowing. US/US breast BI limited mamm only IMPRESSION: No findings suspicious for malignancy in either breast. Extremely dense fibrocystic tissue bilaterally, with several simple cysts noted in both breasts. 2 small cysts in the 11:00 axis of the anterior right breast likely account for the palpable abnormality. No specific mammographic or ultrasonographic findings were explained bilateral breast pain. Recommend clinical management for this finding. Otherwise, recommend the patient resume routine annual screening bilaterally. OVERALL ASSESSMENT: Mammography: BI-RADS 2 - Benign Findings Ultrasound: BI-RADS 2 - Benign Findings RECOMMENDATION: 1 year F/U This patient's information was entered into a reminder system with a target due date for their next mammogram.
== END 2023-12-01 11:01 | disposition home or self-care (01) ==
LOC: HO.MAMMO 11:00
PROVIDERS: PCP Internal Medicine; Visit Provider Surgery
DX: N64.4 Mastodynia (principal)
CPT/HCPCS: 76642; 77062; 77066

== ENCOUNTER → 2023-12-01 11:30 | Outpatient (BNV) | payer OTHER, SELFPAY | PROVIDERS: PCP Internal Medicine; Visit Provider Radiology Diagnostic Radiology | DX: N64.4 Mastodynia (principal); N63.11 Unspecified lump in the right breast, upper outer quadrant | CPT/HCPCS: 76642; 77062; 77066 ==

== ENCOUNTER 2023-12-15 07:28 | Outpatient (REF) | payer OTHER, SELFPAY ==
[2023-12-15 10:31] LABS: MANUAL DIFF FLAG NO
[2023-12-15 10:44] LABS: Basophils Percent Auto 0.4 % (0-2); Eosinophils Absolute Auto 0.1 X10*3/uL (0.0-0.4); Hematocrit 38.2 % (37.0-47.0); Hemoglobin 12.5 g/dl (12.0-16.0); Imm Gran Abs Auto 0.01 X10*3/uL (0.00-0.03); Imm Gran Pct Auto 0.2 % (0.0-0.4); Lymphocytes Absolute Auto 1.6 X10*3/uL (1.2-4.9); Mean Corpuscular HGB Conc 32.7 g/dl (31.0-35.0); Mean Corpuscular Hemoglobin 30.5 pg (27.0-33.0); Mean Corpuscular Volume 93.2 fL (80.0-98.0); Mean Platelet Volume 12.9 fL (9.4-12.3); Monocytes Absolute Auto 0.3 X10*3/uL (0.1-1.2); Monocytes Percent Auto 5.4 % (2-11); Neutrophils Absolute Auto 3.3 x10*3/uL (2.0-8.3); Platelet Count 193 X10*3/uL (160-400); White Blood Count 5.4 X10*3/uL (4.8-10.8)
[2023-12-15 11:19] LABS: Alanine Aminotransferase 11 U/L (0-31); Alkaline Phosphatase 38 U/L (39-117); Anion Gap 12 (12-20); Aspartate Amino Transferase 16 U/L (5-31); Bilirubin Total 0.3 mg/dL (0.0-1.0); Blood Urea Nitrogen 19 mg/dL (9-16); Calcium 9.2 mg/dL (8.4-10.2); Carbon Dioxide 27 mmol/L (22-29); Chloride 108 mmol/L (96-108); Cholesterol 188 mg/dL (<200); Estimated Glomerular Filt Rate > 60; Glucose Fasting 94 mg/dL (60-99); HDL Cholesterol 62 mg/dL (>40); LDL Cholesterol Calculated 117 mg/dL (<100); Potassium 4.5 mmol/L (3.3-5.1); Sodium 142 mmol/L (135-145); Total Protein 6.8 g/dL (6.5-8.0); Triglycerides 48 mg/dL (<150)
[2023-12-15 14:51] LABS: TSH reflex Free T4 1.42 uIU/mL (0.32-4.0)
== END 2023-12-15 07:29 | disposition home or self-care (01) ==
LOC: HO.HMGCLDS 07:28
PROVIDERS: PCP Internal Medicine; Visit Provider Internal Medicine
DX: Z00.01 Encounter for general adult medical examination with abnormal findings (principal); L40.9 Psoriasis, unspecified; D24.1 Benign neoplasm of right breast
CPT/HCPCS: 36415; 80053; 80061; 84443; 85025

== ENCOUNTER 2024-03-22 08:41 | Outpatient (AMB) | payer OTHER, SELFPAY ==
--- NOTE | 2024-03-22 08:43 | A.OFFVIS_ITS ---
Vital Signs 03/22/24 08:44 Height 5 ft 4 in Weight 117 lb BMI 20.1 BP 115/69 Blood Pressure Location Rt brachial Position Sitting Pulse 69 Intake Visit Reasons: 6 mth follow up breast exam Intake Note: Patient is seen in office for 6 month follow up visit, breast exam. Pt c/o:mm:12/01/23, reports not breast complaints. 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 She was previously started on tamoxifen for breast pain with completed her course approximately 3 months ago. She denies any further breast pain. She underwent her routine annual mammogram on 12/01/2023. This revealed no mammographic or ultrasound specific evidence of malignancy (BI-RADS 2 mammogram, BI-RADS 2 ultrasounds). She has a strong family history of breast cancer with a Tyrer- Cuzick remaining lifetime risk of breast cancer calculated at 40 %. She was placed on the high risk protocol including twice yearly clinical breast examinations, breast MRI and yearly mammograms. Abnormal finding on breast MRI resulted in MR guided biopsy on 03/04/2022. This revealed intraductal papilloma and she subsequently underwent lumpectomy on 04/06/2022. Residual intraductal papilloma was identified with no atypia or malignancy. Genetic testing revealed no clinically significant mutations and no mutations of unknown significance. She underwent an ultrasound-guided core biopsy on 11/29/2022 which was also negative for malignancy. She subsequently underwent workup with a diagnostic mammogram and ultrasound of the right breast on 05/03/2023. This revealed no mammographic or sonographic evidence of malignancy in the right breast. She was started on tamoxifen 10 mg p.o. daily. After starting the medication she developed body aches, chills, loss of appetite, weight loss for approximately 4 days. The medication did minimize her breast pain. She subsequently stopped the medication but noted the chest pain to increase. She subsequently restarted the medication as noted above. She denies any current breast complaints. [facility] Medical History Complex ovarian cyst Surgical History History of lumpectomy of right breast (04/06/22) History of excision of mass History of wisdom tooth extraction History of tonsillectomy History of ankle surgery History of elbow surgery Family History Father Diabetes Heart attack Mother Diabetes Tachycardia Breast cancer Maternal Aunt Breast cancer Maternal Aunt Breast cancer Maternal Aunt Breast cancer Social History Housing: Apartment Alcohol intake: current Alcohol intake frequency: a few times a week Patient Tobacco Use Status: Former Tobacco user Years Smoked: 10 years e-Cigarette/Vaping Use: Never Used service: No Current occupational status: employed Cognitive needs: No Hearing needs: No Vision needs: No Female Reproductive History Menstrual Age of Menarche: 7 Review of Systems Const Denies chills, Denies fever(s) and Denies night sweats Skin/Breast Reports as per HPI Physical Exam Vital Signs: Last Vital Signs Pulse 69 03/22/24 08:44 BP 115/69 03/22/24 08:44 BMI result Body Mass Index 20.1 Const General: no acute distress Nutritional Appearance: well nourished Orientation/consciousness: patient oriented x3 Limitations: no limitations Chest Other: Left breast: No skin change, no nipple retraction, no nipple discharge, no palpable mass, no enlarged lymph nodes. Right breast: No skin change, no nipple retraction, no nipple discharge, no palpable mass, no enlarged lymph nodes No breast tenderness. Skin Other: Warm, dry, psoriasis Neuro General: patient oriented x3 Assessment & Plan Assessment & Plan (1) Bilateral mastodynia: Code(s): N64.4 - Mastodynia Category: Medical (2) At high risk for breast cancer: Code(s): Z91.89 - Other specified personal risk factors, not elsewhere classified Category: Medical (3) Papilloma of right breast: Code(s): D24.1 - Benign neoplasm of right breast Category: Medical Plan 38-year-old female patient with a history of mastodynia, and strong family history of breast cancer. She was started on low-dose tamoxifen for breast pain which did seem to help her symptoms. Current examination reveals marked imp rovement in her overall breast pain and no new suspicious findings. Her most recent mammogram of 12/01/2023 revealed no suspicious findings. She will be due for follow-up mammogram in 1 year. I recommended follow-up examination in 6 months. We will discuss follow-up MRI at that time. Coding Level of Care Code Est Pt Level 3 (97354) Diagnoses Bilateral mastodynia N64.4 At high risk for breast cancer Z91.89 Papilloma of right breast D24.1
[2024-03-22 08:44] VITALS: BP 115/69; PULSE 69; BMI 20.1
== END 2024-03-22 09:17 | disposition home or self-care (01) ==
PROVIDERS: PCP Internal Medicine; Visit Provider Surgery
DX: D24.1 Benign neoplasm of right breast (principal); N64.4 Mastodynia; Z91.89 Other specified personal risk factors, not elsewhere classified
CPT/HCPCS: 99213

== ENCOUNTER → 2024-03-22 08:41 | Outpatient (BNVA) | payer OTHER, SELFPAY | PROVIDERS: PCP Internal Medicine; Visit Provider Surgery | DX: N63.10 Unspecified lump in the right breast, unspecified quadrant (principal); N64.4 Mastodynia; Z91.89 Other specified personal risk factors, not elsewhere classified ==

== ENCOUNTER 2024-09-06 08:49 | Outpatient (AMB) | payer OTHER, SELFPAY ==
--- NOTE | 2024-09-06 09:12 | A.OFFVIS_ITS ---
Vital Signs 09/06/24 09:13 Height 5 ft 4 in Weight 127 lb BMI 21.8 BP 123/74 Blood Pressure Location Lt brachial Position Sitting Pulse 77 Intake Visit Reasons: 6 mth follow up breast exam Intake Note: Patient is seen in office for 6 month follow up visit, breast exam. 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 She has a strong family history of breast cancer with a Tyrer-Cuzick remaining lifetime risk of breast cancer calculated at 40%. She was placed on a high risk protocol including twice yearly clinical breast examination, breast MRI and yearly mammograms alternating every 6 months. She underwent an MR guided biopsy of the right breast on 03/04/2022 which revealed an intraductal papilloma and subsequent lumpectomy performed on 04/06/2022. Residual intraductal papilloma was identified with no atypia or malignancy. Genetic testing revealed no clinically significant mutations and no mutations of unknown significance. An ultrasound- guided core biopsy of 11/29/2022 revealed no atypia or malignancy. Her most recent mammogram of 12/01/2023 revealed dense breast tissue however no mammographic evidence of malignancy (BI-RADS 2). Bilateral ultrasounds also revealed no suspicious findings at that time. She was placed on low-dose tamoxifen for approximately 3 months for severe right breast pain which helped markedly. She was without pain however recently began to notice some sensit ivity in the right breast once again. She is not interested in restarting tamoxifen at this time. [facility] Medical History Complex ovarian cyst Surgical History History of lumpectomy of right breast (04/06/22) History of excision of mass History of wisdom tooth extraction History of tonsillectomy History of ankle surgery History of elbow surgery Family History Father Diabetes Heart attack Mother Diabetes Tachycardia Breast cancer Maternal Aunt Breast cancer Maternal Aunt Breast cancer Maternal Aunt Breast cancer Social History Housing: Apartment Alcohol intake: current Alcohol intake frequency: a few times a week Patient Tobacco Use Status: Former Tobacco user Years Smoked: 10 years e-Cigarette/Vaping Use: Never Used service: No Current occupational status: employed Cognitive needs: No Hearing needs: No Vision needs: No Female Reproductive History Menstrual Age of Menarche: 7 Review of Systems Const All systems reviewed & are unremarkable except as noted in HPI and below Physical Exam Vital Signs: Last Vital Signs Pulse 77 09/06/24 09:13 BP 123/74 09/06/24 09:13 BMI result Body Mass Index 21.8 Const General: no acute distress Nutritional Appearance: well nourished Orientation/consciousness: patient oriented x3 Limitations: no limitations Chest Other: Skin is much improved with minimal to no psoriasis noted Left breast: No tenderness. No skin change, no nipple retraction, no nipple discharge, no palpable mass, no enlarged lymph nodes. Right breast: Diffusely tender. No skin change, no nipple retraction, no nipple discharge, no palpable mass, no enlarged lymph nodes Skin Other: Warm, dry, psoriasis Neuro General: patient oriented x3 Assessment & Plan Assessment & Plan (1) At high risk for breast cancer: Code(s): Z91.89 - Other specified personal risk factors, not elsewhere classified Category: Medical (2) Family history of breast cancer in first degree relative: Code(s): Z80.3 - Family history of malignant neoplasm of breast Category: Medical Plan 38-year-old female patient with strong family history of breast cancer placed on a high risk protocol. She returns for six-month follow-up examination which revealed no new suspicious findings. She has had an increase in pain in the right breast but is not interested in tamoxifen at this time. Her most recent mammogram of 12/01/2023 revealed no mammographic evidence of malignancy (BI-RADS 2). She had bilateral screening ultrasounds at that time which also revealed no suspicious findings. I recommended follow-up examination in 6 months. She is welcome to call sooner for any new concerns. Coding Level of Care Code Est Pt Level 3 (88162) Complex EM visit Add On G2211 Diagnoses At high risk for breast cancer Z91.89 Family history of breast cancer in first degree relative Z80.3
[2024-09-06 09:13] VITALS: BP 123/74; PULSE 77; BMI 21.8
== END 2024-09-06 09:22 | disposition home or self-care (01) ==
PROVIDERS: PCP Internal Medicine; Visit Provider Surgery
DX: Z91.89 Other specified personal risk factors, not elsewhere classified (principal); Z80.3 Family history of malignant neoplasm of breast
CPT/HCPCS: 99213

== ENCOUNTER → 2024-09-06 08:49 | Outpatient (BNVA) | payer OTHER, SELFPAY | PROVIDERS: PCP Internal Medicine; Visit Provider Surgery | DX: N63.10 Unspecified lump in the right breast, unspecified quadrant (principal); N64.4 Mastodynia; Z91.89 Other specified personal risk factors, not elsewhere classified ==

== ENCOUNTER 2024-11-01 10:59 | Outpatient (AMB) | payer OTHER, SELFPAY ==
[2024-11-01 11:12] VITALS: BP 118/78; PULSE 78; O2SAT 99; BMI 21.2
--- NOTE | 2024-11-01 11:12 | A.OFFPC_ITS ---
Vital Signs 11/01/24 11:12 Height 5 ft 4 in Weight 123 lb 8 oz BMI 21.2 BP 118/78 Blood Pressure Location Rt brachial Position Sitting Pulse 78 Pulse Source Pulse Oximeter Pulse Oximetry (%) 99 Oxygen Delivery Method Room Air Intake Visit Reasons: Annual PE Allergies Penicillins Allergy (Severe, Verified 11/01/24 11:12) RASH FEVER cillin Allergy (Severe, Uncoded 09/06/24 09:15) hives Medication List - Last Reconciled 11/01/24 by Mike Kimball MD No Known Home Meds Tobacco use date assessed: 11/01/24 Dental Screening Dental Screen Date: 11/01/24 Did you have a dental visit in the last 12 months?: Yes Did you have a dental problem in the last 6 months where you did not have access to dental care?: No Was dental information given to patient?: Patient has dentist HPI Annual PE HPI Details Physical exam appointment - The 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 - These episodes primarily occur upon ex ertion or exposure to warmer environments, and she experiences pronounced sweating. - Such symptoms have been sporadic and a re generally self-limited, without loss of consciousnes History of right breast papilloma followed by Dr. Guallpa Patient says that she has seen OBGYN in 2021 has not seen since, placed Breast exam through Dr. 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 Labs done last year reviewed Review of Systems - General: no chills - Neurological: No headaches - Ear nose throat: No sore throat no hearing difficulty no ear pain - Cardiovascular: No syncope, no chest pain, - Gastrointestinal: No vomiting or diarrhea - Endocrine: No polyuria polydipsia no heat intolerance - Genitourinary: No dysuria - Skin: No new complaints Physical Exam General: Cooperative, healthy appearing, comfortable, no acute distress Orientation: Patient oriented x3 Limitations: none Head: Normal to inspection Ears: Within normal limit visually Nose: Normal external nose present Face and sinus: Normal facial exam Eyes: Appearance normal, extraocular movement intact pupils reactive Neck: Normal visual inspection and supple Respiratory: Normal respiratory effort and able to speak in complete sentences. Clear to auscultation, no stridor Cardiovascular: S1 and S2 regular in rate and rhythm GI: Normal to inspection. Soft to palpation and nontender Skin: Turgor normal, no acute findings Neuro: Patient oriented x3, motor sensory intact, balance intact Extremities: Normal to inspection, noted swelling in feet and wrists [facility], [facility] Medical History Complex ovarian cyst Surgical History History of lumpectomy of right breast (04/06/22) History of excision of mass History of wisdom tooth extraction History of tonsillectomy History of ankle surgery History of elbow surgery Family History Father Diabetes Heart attack Mother Diabetes Tachycardia Breast cancer Maternal Aunt Breast cancer Maternal Aunt Breast cancer Maternal Aunt Breast cancer Social History Housing: Apartment Alcohol intake: current Alcohol intake frequency: a few times a week Patient Tobacco Use Status: Former Tobacco user Years Smoked: 10 years e-Cigarette/Vaping Use: Never Used service: No Current occupational status: employed Cognitive needs: No Hearing needs: No Vision needs: No Female Reproductive History Menstrual Age of Menarche: 7 Questionnaire PHQ-9 Over the last 2 weeks, how often have you been bothered by any of the following problems? 1. Little interest or pleasure in doing things: not at all 2. Feeling down, depressed, or hopeless: not at all 3. Trouble falling or staying asleep, or sleeping too much: not at all 4. Feeling tired or having little energy: not at all 5. Poor appetite or overeating: not at all 6. Feeling bad about yourself - or that you are a failure or have let yourself or your family down: not at all 7. Trouble concentrating on things, such as reading the newspaper or watching television: not at all 8. Moving or speaking so slowly that other people could have noticed. Or the opposite - being so fidgety or restless that you have been moving around a lot more than usual: not at all 9. Thoughts that you would be better off or of hurting yourself in some wa y: not at all Total score: 0 Depression Screening Interpretation: Negative Depression Screening Done: Yes 00106 - PHQ-9 Billing: Yes Source: Developed by Drs. Tiago Zelaya, Jes Hussein, Donell Fabian and colleagues, with an educational don from [employer]. Thrive Questionnaire Date Thrive assessed: 11/01/24 I am a: Patient What is your living situation today?: I have a steady place to live Within the past 12 months, did the food you bought not last and you didn't have the money to get more?: Never true Within the past 12 months, did you worry whether your food would run out before you got money to buy more?: Never true Do you have trouble paying for medicines?: No Do you have trouble getting transportation to medical appointments?: No Do you have trouble paying your heating and electricity bill?: No Do you have trouble taking care of your child, family member or friend?: No Do you have trouble with day-to-day activities such as bathing, preparing meals, shopping, managing finances, etc.?: No Are you currently unemployed and looking for a job?: No Are you interested in more education?: No Please select the resources that you would like help with: None Currently or been in a relationship where the following occur: No concerns reported THRIVE Score: 0 AUDIT C Alcohol Use Questionnaire (AUDIT-C) 1. How often do you have a drink containing alcohol?: 2-3 times a week 2. How many drinks containing alcohol do you have on a typical day when you are drinking?: 1 or 2 3. How often do you have six or more drinks on one occasion?: Less than monthly Total Score: 4 Score Reviewed/Action Taken: Yes AMANDEEP-7 AMB Questionnaire AMANDEEP-7 Date AMANDEEP - 7 assessed: 11/01/24 Feeling nervous, anxious, or on edge: 0 = Not at all Not being able to stop or control worryin = Not at all Worrying too much about different things: 0 = Not at all Trouble relaxin = Not at all Being so restless that it is hard to sit still: 0 = Not at all Becoming easily annoyed or irritable: 1 = Several days Feeling afraid as if something awful might happen: 0 = Not at all Total AMANDEEP-7 score (0-4 normal; 5-9 mild; 10-14 moderate; 15-21 severe): 1 Source: Developed by Drs. Tiago Zelaya, Jes Hussein, Donell Fabian and colleagues, with an educational don from [employer]. AMANDEEP-7 Assessment Billing AMANDEEP-7 Assessment Tool: AMANDEEP-7 Assessment 12244 Physical exam (Primary Care) Vital Signs: Last Vital Signs Pulse 78 11/01/24 11:12 BP 118/78 11/01/24 11:12 Pulse Ox 99 11/01/24 11:12 Oxygen Delivery Method Room Air 11/01/24 11:12 BMI result Body Mass Index 21.2 Tobacco/Smoking Status: Tobacco use Status Tobacco use date assessed 11/01/24 11/01/24 11:14 Patient Tobacco Use Status Former Tobacco user 11/01/24 11:14 e-Cigarette/Vaping Use Never Used 11/01/24 11:14 PHQ-9: PHQ-9 Score PHQ-9: Total score 0 11/01/24 11:14 Depression Screening Interpretation: Negative Thrive Assessment: Date of Thrive Assessment Date Thrive assessed 11/01/24 11/01/24 11:14 Currently or been in a relationship where the following occur: No concerns reported Office Procedures EKG 04057-[id number], Complete Coding Level of Care Code Est Pt Level 4 (77099) Est Pt Prev Care 40-64y(92918) Diagnoses Encounter for general adult medical examination with abnormal findings Z00.01 Palpitations R00.2 At high risk for breast cancer Z91.89 Family history of breast cancer in first degree relative Z80.3 Psoriasis L40.9 CPT Codes EKG - CPT: 09032-[id number], Complete ([id number]) Additional Codes AMANDEEP-7 Assessment Billing - AMANDEEP-7 Assessment Tool: AMANDEEP-7 Assessment 53797 ([id number]) PHQ-9 - 99000 - PHQ-9 Billing: Yes ([id number]) Assessment & Plan Assessment & Plan (1) Encounter for general adult medical examination with abnormal findings: Code(s): Z00.01 - Encounter for general adult medical examination with abnormal findings Category: Medical (2) Palpitations: Code(s): R00.2 - Palpitations Category: Medical (3) At high risk for breast cancer: Code(s): Z91.89 - Other specified personal risk factors, not elsewhere classified Category: Medical (4) Family history of breast cancer in first degree relative: Code(s): Z80.3 - Family history of malignant neoplasm of breast Category: Medical (5) Psoriasis: Code(s): L40.9 - Psoriasis, unspecified Category: Medical Plan Physical exam appointment - The patient is a 39-year-old female presenting with a history of feeling warm episodes with accompanying sweating and dizziness, described as pre-syncope. - These episodes primarily occur upon exertion or exposure to warmer environments, and she experiences pronounced sweating. - Such symptoms have been sporadic and are generally self-limited, without loss of consciousnes History of right breast papilloma followed by Dr. Guallpa Patient says that she has seen OBGYN in 2021 has not seen since, placed Breast exam through Dr. 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 Labs done last year reviewed Orders: Referrals Cardiology Referral R00.2 - Palpitations [facility] Referral Z01.419 - Encounter for gynecological examination (general) (routine) without abnormal findings
== END 2024-11-01 12:01 | disposition home or self-care (01) ==
PROVIDERS: PCP Internal Medicine; Visit Provider Internal Medicine
DX: Z00.01 Encounter for general adult medical examination with abnormal findings (principal); R00.2 Palpitations; Z91.89 Other specified personal risk factors, not elsewhere classified; Z80.3 Family history of malignant neoplasm of breast; L40.9 Psoriasis, unspecified

== ENCOUNTER → 2024-11-01 10:59 | Outpatient (BNVA) | payer OTHER, SELFPAY | PROVIDERS: PCP Internal Medicine; Visit Provider Internal Medicine | DX: Z00.01 Encounter for general adult medical examination with abnormal findings (principal); R00.2 Palpitations; L40.9 Psoriasis, unspecified; Z91.89 Other specified personal risk factors, not elsewhere classified; Z80.3 Family history of malignant neoplasm of breast | CPT/HCPCS: 93005; 96127 ==

== ENCOUNTER 2024-11-22 09:53 | Outpatient (REF) | payer OTHER, SELFPAY | END 2024-11-22 09:54 | disposition home or self-care (01) | LOC: HO.MAMMO 09:53 | PROVIDERS: PCP Internal Medicine; Visit Provider Internal Medicine | DX: Z12.31 Encounter for screening mammogram for malignant neoplasm of breast (principal) | CPT/HCPCS: 77063; 77067 ==

== ENCOUNTER → 2024-11-22 10:15 | Outpatient (BNV) | payer OTHER, SELFPAY | PROVIDERS: PCP Internal Medicine; Visit Provider Internal Medicine | DX: Z12.31 Encounter for screening mammogram for malignant neoplasm of breast (principal) | CPT/HCPCS: 77063; 77067 ==

== ENCOUNTER 2025-01-17 09:45 | Outpatient (REF) | payer OTHER, SELFPAY ==
[2025-01-17 16:43] LABS: Bacterial Vaginosis PCR NEGATIVE (Negative); Candida Group PCR NOT DETECTED (Not Detect); Candida glab krusei PCR NOT DETECTED (Not Detect); Trichomonas vaginalis PCR NOT DETECTED (Not Detect)
[2025-01-17 17:14] LABS: CT PCR NOT DETECTED (Not Detect.); NG PCR NOT DETECTED (Not Detect.)
== END 2025-01-17 09:46 | disposition home or self-care (01) ==
LOC: HO.LNP 09:45
PROVIDERS: PCP Internal Medicine; Visit Provider Advanced Practice Midwife
DX: Z01.419 Encounter for gynecological examination (general) (routine) without abnormal findings (principal); Z20.2 Contact with and (suspected) exposure to infections with a predominantly sexual mode of transmission
CPT/HCPCS: 81515; 87491; 87591

== ENCOUNTER 2025-01-17 09:45 | Outpatient (AMB) | payer OTHER, SELFPAY ==
--- NOTE | 2025-01-17 09:51 | A.OFFVIS_ITS ---
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 Two years ago she had breast cancer diagnosed through follow-up from a mammogram to an MRI that found it. She had the surgery and she is getting Q six-month follow-up with Dr. Guallpa. During that time her left her but she has a new relationship with a girlfriend and family. She has no concerns about STIs but did accept testing has this is a new intimate relationship though she has known the person for 20 years. She has no other health concerns. [facility] Medical History Complex ovarian cyst Surgical History (Updated 01/17/25 @ 10:47 by Allyssa Starks CNM) History of lumpectomy of right breast (04/06/22) History of excision of mass History of wisdom tooth extraction History of tonsillectomy History of ankle surgery History of elbow surgery Family History Father Diabetes Heart attack Mother Diabetes Tachycardia Breast cancer Maternal Aunt Breast cancer Maternal Aunt Breast cancer Maternal Aunt Breast cancer Social History (Updated 01/17/25 @ 09:57 by Shahla Baird MA) Housing: House Alcohol intake: current Alcohol intake frequency: a few times a week Patient Tobacco Use Status: Former Tobacco user Years Smoked: 10 years e-Cigarette/Vaping Use: Never Used service: No Current occupational status: employed Cognitive needs: No Hearing needs: No Vision needs: No Female Reproductive History Menstrual Age of Menarche: 7 Duration of menses: 3-5 days Date of last menstrual period: 10/29/24 Total pregnancies: 1 Full term: 0 Number of Living Children: 0 Ab induced: 1 Date of last pap smear: 11/16/21 Date of Mammogram: 11/22/24 Physical Exam Vital Signs: Last Vital Signs BP 120/70 01/17/25 09:52 BMI result Body Mass Index 20.8 Const General: healthy appearing, comfortable, no acute distress, well developed and alert Nutritional Appearance: average body habitus Orientation/consciousness: patient oriented x3 Limitations: no limitations HEENT Head: Yes normocephalic Neck Neck: Yes normal visual inspection Chest Other: Has some patches of psoriasis which she has had since she was a child. Some scars from her breast surgery no masses otherwise. Chest palpation & inspection: normal inspection of the chest Breast/axilla inspection: normal inspection of the breasts and normal inspection of the axillae Breast/axilla palpation: normal palpation of the breasts and normal palpation of the axillae Resp Effort & Inspection: normal respiratory effort GI Inspection: Yes normal to inspection, No Abdominal wall edema and No distended Palpation (GI): Soft to palpation and nontender Other: As some patches of psoriasis. External exam within normal limits vagina pink and moist clear healthy mucosa with normal-appearing mucus cervix nulliparous long close thick mobile nontender uterus midposition mobile nontender adnexa nontender good tone with General: Yes bladder normal to palpation External Female Exam: normal external appearance and normal appearance of the urethra Speculum Exam - Vagina: normal appearance of the vagina, normal palpation and normal vaginal discharge Speculum Exam - Cervix: normal appearance of the cervix, normal palpation and nontender Bimanual exam- vagina & uterus: normal bimanual exam, normal palpation, uterine size normal, bladder normal to palpation, consistency normal, normal palpation, uterine mobility normal, uterine shape normal, No Cervical tenderness present, non-tender and no cervical motion tenderness Bimanual Exam- Adnexa, other: normal adnexae, no masses, normal and No adnexal tenderness Neuro General: patient oriented x3 Results Reviewed Results Reviewed: Gynecologic Cytology [id number] Name: Angela Jimenez Age/Sex: 36/F Attending: Allyssa Starks CNM : 1985 Submitted by: Allyssa Starks CNM Copies to: Mike Kimball MD MR #: [id number] Status: DEP REF Collected: 11/15/21 Location: .LAB Received: 11/16/21 Interpretation Satisfactory for evaluation. Negative for intraepithelial lesion or malignancy. HPV mRNA E6/E7: NOT DETECTED This assay detects E6/E7 viral messenger RNA (mRNA) from 14 high-risk HPV types (16, 18, 31, 33, 35, 39, 45, 51, 52, 56, 58, 59, 66, 68) HPV testing performed by [facility] [place] [place]. See reference laboratory portion of the EMR for entire report. Clinical Information LMP:10/25/21 Previous PAP test:Unknown date, Unknown findings Material Received ThinPrep-Cervical Copies To Mike Kimball MD [address] [facility] [place] [address] Allyssa Starks CNM [address] [place] [address] [address]. [address] [id number] Electronically Signed By: Kristine Leger 11/29/21 1778 The Pap Test is a screening procedure with the inherent possibility of both false negative and false positive results. Results should be interpreted in the context of historic and current clinical findings. Reliability of the Pap Test is enhanced by performing the test on a regular repetitive basis. Patient: Angela Jimenez Age/Sex: 36/F MR#: [id number] Page 1 of 1 Assessment & Plan Assessment & Plan (1) Family history of breast cancer in first degree relative: Code(s): Z80.3 - Family history of malignant neoplasm of breast Category: Medical (2) Cervical cancer screening: Comment: 11/15/2021 Pap equals negative with negative HPV. Code(s): Z12.4 - Encounter for screening for malignant neoplasm of cervix Category: Medical (3) Well woman exam with routine gynecological exam: Code(s): Z01.419 - Encounter for gynecological examination (general) (routine) without abnormal findings Category: Medical (4) Papilloma of right breast: Code(s): D24.1 - Benign neoplasm of right breast Category: Medical Plan -----Discussed in this visit the following: healthy balanced diet, regular and consistent exercise, getting recommended health screens, doing the best she can for her particular health concerns, kegel exercises, pap smear screening and followup recommendations, mammography screening and SBE, normal changes in cycles in her life stage--- . Discussed her breast cancer discovery and journey. She is getting regular follow-up and is doing well now. Her psoriasis is much better than when she and I met in the past and she is managing it as best she can. She just puts cream on it these days when she needs to. She would be due for her next Pap smear in 2026 and she is getting her breast cancer follow-up with Dr. Guallpa she is healthy otherwise and has no other concerns testing done today at my suggestion for gonorrhea chlamydia trichomoniasis bacterial vaginosis and yeast though discharge appears completely normal consistent with luteal phase and the patient herself has no concerns. RTC 1 year or if she decides two years for the full exam and Pap. Coding Level of Care Code New Pt Prev Care 40-64y(60554) Diagnoses Family history of breast cancer in first degree relative Z80.3 Cervical cancer screening Z12.4 Well woman exam with routine gynecological exam Z01.419 Papilloma of right breast D24.1
[2025-01-17 09:52] VITALS: BP 120/70; BMI 20.8
== END 2025-01-17 10:49 | disposition home or self-care (01) ==
LOC: HO.HWS 09:45
PROVIDERS: PCP Internal Medicine; Visit Provider Advanced Practice Midwife
DX: Z01.419 Encounter for gynecological examination (general) (routine) without abnormal findings (principal); D24.1 Benign neoplasm of right breast; Z80.3 Family history of malignant neoplasm of breast
CPT/HCPCS: 99386; 99459

== ENCOUNTER 2025-02-27 07:44 | Outpatient (AMB) | payer OTHER, SELFPAY ==
--- NOTE | 2025-02-27 08:30 | MHC.OFFVIS ---
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 She reports experiencing excessive sweating and dizziness during physical exertion, such as shoveling snow, which has been occurring since her 30s. These episodes are accompanied by a sensation of impending fainting. Random chest pain episodes, sharp, noncardiac sounding. The patient has no prior cardiac history. She has undergone an EKG, which was normal, but was referred to a hot knife foxing cutter for further evaluation. The patient also reports episodes of hypoglycemia. [facility] Medical History (Updated 02/27/25 @ 08:45 by Kishan Fatima MD) Complex ovarian cyst Surgical History (Updated 01/17/25 @ 10:47 by Allyssa Starks CNM) History of lumpectomy of right breast (04/06/22) History of excision of mass History of wisdom tooth extraction History of tonsillectomy History of ankle surgery History of elbow surgery Family History Father Diabetes Heart attack Mother Diabetes Tachycardia Breast cancer Maternal Aunt Breast cancer Maternal Aunt Breast cancer Maternal Aunt Breast cancer Social History (Updated 01/17/25 @ 09:57 by Shahla Baird MA) Housing: House Alcohol intake: current Alcohol intake frequency: a few times a week Patient Tobacco Use Status: Former Tobacco user Years Smoked: 10 years e-Cigarette/Vaping Use: Never Used service: No Current occupational status: employed Cognitive needs: No Hearing needs: No Vision needs: No Female Reproductive History Menstrual Age of Menarche: 7 Review of Systems Const Denies weakness ENT Denies dizziness Card Denies chest pain, Denies chest pain with activity, Denies syncope, Denies rapid heart rate, Denies pedal edema, Denies edema, Denies leg edema, Denies lightheadedness, Reports palpitations, Denies dyspnea, Denies dyspnea on exertion and Denies orthopnea Resp Denies cough, Denies dyspnea and Denies dyspnea on exertion GI Denies hematochezia and Denies change in stool character Musc Denies abnormal gait, Denies muscle cramps, Denies muscle weakness, Denies numbness, Denies radiating pain into limb and Denies tingling Neuro Denies abnormal gait, Denies dizziness, Denies syncope, Denies numbness, Denies tingling and Denies weakness Endo Reports palpitations Physical Exam Vital Signs: Last Vital Signs Pulse 75 02/27/25 08:31 BP 110/60 02/27/25 08:31 BMI result Body Mass Index 21.9 Const General: comfortable and no acute distress Orientation/consciousness: patient oriented x3 HEENT Other: Unremarkable Head: Yes normal to inspection Neck Neck: Yes normal visual inspection Chest Chest palpation & inspection: normal inspection of the chest Resp Auscultation: clear to auscultation bilaterally Cardio Palpation: normal PMI Heart sounds: S1 normal heart sound present, S2 normal heart sound present, no gallops, no murmurs and no rubs GI Palpation (GI): Soft to palpation Back/Spine/Pelvis Other: unremarkable Skin General skin exam: no rashes or lesions noted Neuro General: patient oriented x3 Extrem General: Yes normal to inspection Psych Mental Status: mental status grossly normal Assessment & Plan Assessment & Plan (1) SOB (shortness of breath): Code(s): R06.02 - Shortness of breath Category: Medical Plan Various symptoms including shortness of breath, sweating, dizziness during physical exertion. Clinical examination unremarkable. In the EKG, underlying rhythm is sinus at 63/Min; no ischemic findings; normal DC and corrected QT. Overall, low suspicion of cardiac etiology for her symptoms. Echocardiogram to assess cardiac function. Exercise stress test can be performed to look to provoke the symptoms she is describing and to look for any other issues like chronotropic incompetence. Follow-up after the above. Discussion Notes I discussed with the patient the plan to conduct a stress test and an echocardiogram to evaluate her cardiac function. I explained that these tests would help determine if her symptoms are related to cardiac issues and assess the heart's efficiency during exertion. The patient was informed about the importance of monitoring her symptoms and avoiding activities that trigger them. Patient was informed and verbally consented to the use of an ambient scribe for clinic note documentation during this visit. Orders: Orders CA echo transthoracic complete Today R06.02 - Shortness of breath CA stress test Today R06.02 - Shortness of breath, R07.2 - Precordial pain Patient Instructions: - Monitor symptoms and avoid strenuous activities that cause excessive sweating or dizziness. Coding Level of Care Code New Pt Level 3 (14831) Diagnoses SOB (shortness of breath) R06.02
[2025-02-27 08:31] VITALS: BP 110/60; PULSE 75; BMI 21.9
== END 2025-02-27 08:50 | disposition home or self-care (01) ==
LOC: HO.HCS 07:45
PROVIDERS: PCP Internal Medicine; Visit Provider Internal Medicine
DX: R06.02 Shortness of breath (principal)
CPT/HCPCS: 99203

== ENCOUNTER 2025-03-14 10:01 | Outpatient (AMB) | payer OTHER, SELFPAY ==
--- NOTE | 2025-03-14 10:11 | A.OFFVIS_ITS ---
Intake Visit Reasons: 6mth breast exam Intake Note: Patient is seen in office for 6 month follow up visit, breast exam. Pt c/o: minimal pain compare to last visit, here for breast exam mm:11/22/24 Pasteurizer Required: No Accompanied by: Self / Same As Patient Allergies Penicillins Allergy (Severe, Verified 03/14/25 10:12) RASH FEVER cillin Allergy (Severe, Uncoded 03/14/25 10:12) hives Medication List - Last Reconciled 03/14/25 by Osito Guallpa MD No Known Home Meds HPI Comments Details: 39-year-old female returning for high risk breast cancer examination. She has a strong family history of breast cancer with a Tyrer-Cuzick remaining lifetime risk of breast cancer calculated at 40%. She was placed on a high risk protocol including twice yearly clinical breast examination, breast MRI and yearly mammograms alternating every 6 months. She underwent an MR guided biopsy of the right breast on 03/04/2022 which revealed an intraductal papilloma and subsequent lumpectomy performed on 04/06/2022. Residual intraductal papilloma was identified with no atypia or malignancy. Genetic testing revealed no clinically significant mutations and no mutations of unknown significance. An ultrasound- guided core biopsy of 11/29/2022 revealed no atypia or malignancy. Her most recent mammogram of 11/22/2024 revealed no mammographic evidence of malignancy (BI-RADS 2). She currently feels much improved with no further breast pain on either side. She denies any new palpable lumps. [facility] Medical History Complex ovarian cyst Surgical History History of lumpectomy of right breast (04/06/22) History of excision of mass History of wisdom tooth extraction History of tonsillectomy History of ankle surgery History of elbow surgery Family History Father Diabetes Heart attack Mother Diabetes Tachycardia Breast cancer Maternal Aunt Breast cancer Maternal Aunt Breast cancer Maternal Aunt Breast cancer Social History Housing: House Alcohol intake: current Alcohol intake frequency: a few times a week Patient Tobacco Use Status: Former Tobacco user Years Smoked: 10 years e-Cigarette/Vaping Use: Never Used service: No Current occupational status: employed Cognitive needs: No Hearing needs: No Vision needs: No Female Reproductive History Menstrual Age of Menarche: 7 Review of Systems Const All systems reviewed & are unremarkable except as noted in HPI and below Physical Exam Const General: no acute distress Nutritional Appearance: well nourished Orientation/consciousness: patient oriented x3 Limitations: no limitations Chest Other: Skin is much improved with minimal to no psoriasis noted Left breast: No tenderness. No skin change, no nipple retraction, no nipple discharge, no palpable mass, no enlarged lymph nodes. Right breast: Diffusely tender. No skin change, no nipple retraction, no nipple discharge, no palpable mass, no enlarged lymph nodes Skin Other: Warm, dry, psoriasis Neuro General: patient oriented x3 Assessment & Plan Assessment & Plan (1) At high risk for breast cancer: Code(s): Z91.89 - Other specified personal risk factors, not elsewhere classified Category: Medical (2) Family history of breast cancer in first degree relative: Code(s): Z80.3 - Family history of malignant neoplasm of breast Category: Medical (3) Dense breast tissue on mammogram: Code(s): R92.30 - Dense breasts, unspecified Category: Medical Qualifiers: Mammographic dense breast tissue type: extremely dense Laterality: bilateral Qualified Code(s): R92.343 - Mammographic extreme density, bilateral breasts Plan 39-year-old female patient with strong family history of breast cancer placed on a high risk protocol. She returns for six-month follow-up examination which revealed no new suspicious findings. Overall her pain is much improved and she denies any new breast concerns. Her most recent mammogram dated 11/22/2024 revealed no mammographic evidence of malignancy (BI-RADS 2). I recommended a follow-up breast MRI to be performed 6 months after the mammogram. She expressed understanding and wishes to proceed with this given her strong family history and known dense breast status. She will return in 6 months for follow- up examination, sooner PRN. Orders: Orders MR breast BI wo/w con 05/05/25 R92.30 - Dense breasts, unspecified, Z80.3 - Family history of malignant neoplasm of breast, Z91.89 - Other specified personal risk factors, not elsewhere classified Coding Level of Care Code Est Pt Level 3 (54204) Complex EM visit Add On G2211 Diagnoses At high risk for breast cancer Z91.89 Family history of breast cancer in first degree relative Z80.3 Extremely dense tissue of both breasts on mammography R92.343 Mammographic dense breast tissue type: extremely dense Laterality: bilateral
== END 2025-03-14 10:24 | disposition home or self-care (01) ==
LOC: HO.HGS 10:02
PROVIDERS: PCP Internal Medicine; Visit Provider Surgery
DX: Z91.89 Other specified personal risk factors, not elsewhere classified (principal); Z80.3 Family history of malignant neoplasm of breast; R92.343 Mammographic extreme density, bilateral breasts
CPT/HCPCS: 99213

== ENCOUNTER 2025-04-15 13:49 | Outpatient (AMB) | payer OTHER, SELFPAY ==
[2025-04-15 13:54] VITALS: BP 110/72; PULSE 70; O2SAT 99; BMI 23.0
--- NOTE | 2025-04-15 13:54 | A.OFFPC_ITS ---
Vital Signs 04/15/25 13:54 Height 5 ft 4 in Weight 134 lb BMI 23.0 BP 110/72 Blood Pressure Location Lt brachial Position Sitting Pulse 70 Pulse Source Pulse Oximeter Pulse Oximetry (%) 99 Intake Visit Reasons: Back pain-followup from Urgent Care Allergies Penicillins Allergy (Severe, Verified 04/15/25 13:55) RASH FEVER cillin Allergy (Severe, Uncoded 03/14/25 10:12) hives Medication List - Last Reconciled 04/15/25 by Mike Kimball MD cyclobenzaprine 5 - 10 mg PO PRN ibuprofen (IBU) 600 mg PO Q6H PRN Tobacco use date assessed: 11/01/24 Dental Screening Dental Screen Date: 11/01/24 HPI Back pain-followup from Urgent Care HPI Details Chief Complaint Lower back pain originating around the spine and tailbone, with radiating pain on the right side. History of Present Illness The patient is a 40-year-old female presenting with lower back pain. Patient went to urgent care 5 days ago in [place] and had x-ray of her back she was told to see PCP and get a referral to a back specialist as there is a problem lower lumbar area I do not have their report neither do I have the x-ray report we will request that Lower Back Pain: - The patient reports experiencing pain in the lower back and spine, extending to the tailbone. - Symptoms began a few weeks prior and h ave persisted since onset. . - Pain mimics sciatica, radiating down t he back of the right thigh. - Episode initiated when bending over, l eading to loss of feeling in the leg and subsequent collapse. - Pain is constant, with occasional ting ling in the right foot or toes after prolonged standing or sitting. - The patient reports no previous pain l ocalized directly in the spine. - Use of ibuprofen, 600 mg, has provided some relief of symptoms, taken once to twice daily. Swelling close to right ear: On exam it is a slight parotid gland swelling without any pain Patient says that it is already getting better Medications: - Ibuprofen 600 mg for pain management, taken once to twice daily. 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 - Lives in [place]. - No current issues with sitting or dionna ding during work despite experiencing pain Problem List - lumbar radiculitis right - right parotid gland swelling gout pain getting better Patient Instructions - Change ibuprofen to diclofenac, 75 mg tablet, to be taken up to twice daily, as diclofenac has a longer duration of action. - Avoid taking ibuprofen while using dic lofenac. - Referrals and appointments for evaluat ion by [facility] will be arranged. - Monitor symptoms and obtain further ev aluation if pain persists or worsens. - Watch for any further swelling or disc omfort in the parotid gland and suck on hard candy to alleviate symptoms. Review of Systems - General: No fever no chills - Neurological: No headaches no dizziness - Ear nose throat: No sore throat no hearing difficulty no ear pain - Cardiovascular: No syncope, no chest pain, no palpitations - Gastrointestinal: No nausea vomiting or diarrhea - Endocrine: No polyuria polydipsia no heat intolerance - Genitourinary: No dysuria , no blood in urine Physical Exam General: No acute distress HEENT: No acute findings, slight swelling in the parotid gland noted, but shrink ing Neck: Supple Respiratory system: Able to talk in full sentences Gastrointestinal: No pain Extremities: No new findings IMPREGNATOR HELPER: Alert awake oriented x3 motor sensory intact, slight positive straight leg right side Back no pain with percussion Skin: Normal turgor PFSH Medical History Complex ovarian cyst Surgical History History of lumpectomy of right breast (04/06/22) History of excision of mass History of wisdom tooth extraction History of tonsillectomy History of ankle surgery History of elbow surgery Family History Father Diabetes Heart attack Mother Diabetes Tachycardia Breast cancer Maternal Aunt Breast cancer Maternal Aunt Breast cancer Maternal Aunt Breast cancer Social History Housing: House Alcohol intake: current Alcohol intake frequency: a few times a week Patient Tobacco Use Status: Former Tobacco user Years Smoked: 10 years e-Cigarette/Vaping Use: Never Used service: No Current occupational status: employed Cognitive needs: No Hearing needs: No Vision needs: No Female Reproductive History Menstrual Age of Menarche: 7 Questionnaire Thrive Questionnaire Date Thrive assessed: 10/29/24 I am a: Patient What is your living situation today?: I have a steady place to live Within the past 12 months, did the food you bought not last and you didn't have the money to get more?: Never true Within the past 12 months, did you worry whether your food would run out before you got money to buy more?: Never true Do you have trouble paying for medicines?: No Do you have trouble getting transportation to medical appointments?: No Do you have trouble paying your heating and electricity bill?: No Do you have trouble taking care of your child, family member or friend?: No Do you have trouble with day-to-day activities such as bathing, preparing meals, shopping, managing finances, etc.?: No Are you currently unemployed and looking for a job?: No Are you interested in more education?: No Please select the resources that you would like help with: None Currently or been in a relationship where the following occur: No concerns reported THRIVE Score: 0 AMANDEEP-7 AMB Questionnaire AMANDEEP-7 Date AMANDEEP - 7 assessed: 11/01/24 Source: Developed by Drs. Tiago Zelaya, Jes Hussein, Donell Fabian and colleagues, with an educational don from [employer]. Physical exam (Primary Care) Vital Signs: Last Vital Signs Pulse 70 04/15/25 13:54 BP 110/72 04/15/25 13:54 Pulse Ox 99 04/15/25 13:54 BMI result Body Mass Index 23.0 Tobacco/Smoking Status: Tobacco use Status Tobacco use date assessed 11/01/24 04/15/25 13:55 Patient Tobacco Use Status Former Tobacco user 04/15/25 13:55 e-Cigarette/Vaping Use Never Used 04/15/25 13:55 Thrive Assessment: Date of Thrive Assessment Date Thrive assessed 10/29/24 04/15/25 13:55 Currently or been in a relationship where the following occur: No concerns reported Coding Level of Care Code Est Pt Level 4 (76219) Diagnoses Right lumbar radiculitis M54.16 Parotitis K11.20 Time Spent (min) 30 Comment Agmv-ii-pdro/getting reports from the urgent care/reviewing x-ray report/ coordination Assessment & Plan Assessment & Plan (1) Right lumbar radiculitis: Code(s): M54.16 - Radiculopathy, lumbar region Category: Medical (2) Parotitis: Code(s): K11.20 - Sialoadenitis, unspecified Category: Medical Plan Chief Complaint Lower back pain originating around the spine and tailbone, with radiating pain on the right side. History of Present Illness The patient is a 40-year-old female presenting with lower back pain. Patient went to urgent care 5 days ago in [place] and had x-ray of her back she was told to see PCP and get a referral to a back specialist as there is a problem lower lumbar area I do not have their report neither do I have the x-ray report we will request that Lower Back Pain: - The patient reports experiencing pain in the lower back and spine, extending to the tailbone. - Symptoms began a few weeks prior and have persisted since onset. . - Pain mimics sciatica, radiating down the back of the right thigh. - Episode initiated when bending over, leading to loss of feeling in the leg and subsequent collapse. - Pain is constant, with occasional tingling in the right foot or toes after prolonged standing or sitting. - The patient reports no previous pain localized directly in the spine. - Use of ibuprofen, 600 mg, has provided some relief of symptoms, taken once to twice daily. Swelling close to right ear: On exam it is a slight parotid gland swelling without any pain Patient says that it is already getting better Medications: - Ibuprofen 600 mg for pain management, taken once to twice daily. 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 - Lives in [place]. - No current issues with sitting or standing during work despite experiencing pain Problem List - lumbar radiculitis right - right parotid gland swelling gout pain getting better Patient Instructions - Change ibuprofen to diclofenac, 75 mg tablet, to be taken up to twice daily, as diclofenac has a longer duration of action. - Avoid taking ibuprofen while using diclofenac. - Referrals and appointments for evaluation by [facility] will be arranged. - Monitor symptoms and obtain further evaluation if pain persists or worsens. - Watch for any further swelling or discomfort in the parotid gland and suck on hard candy to alleviate symptoms. Never able to retrieve reports from urgent care X-ray of lumbar spine showed mild disc space narrowing at L5-S1 Orders: Referrals Pain Management Referral M54.16 - Radiculopathy, lumbar region Medications: New diclofenac sodium 75 mg PO BID 20 tabs 0RF pain 10 days
== END 2025-04-15 14:37 | disposition home or self-care (01) ==
LOC: HO.HMCC 13:50
PROVIDERS: PCP Internal Medicine; Visit Provider Internal Medicine
DX: M54.16 Radiculopathy, lumbar region (principal); K11.20 Sialoadenitis, unspecified

== ENCOUNTER → 2025-04-17 07:46 | Outpatient (REF) | payer OTHER, SELFPAY ==
--- NOTE | 2025-04-17 07:48 | CA_ITS ---
Transthoracic Echocardiogram Patient (Last, First, Middle): Angela Jimenez J Gender: F Date of : 1985 Age: 40 Procedure Date: 04/17/2025 Procedure Type: Transthoracic Echocardiogram Location: OP Height: 162.56 cm Weight: 60.78 kg BSA: 1.65 m2 Heart Rate: bpm BP: 110 / 64 mmHg Supervisor Machining: TO Referring MD: Kishan Fatima MD Side Seam Machine Operator: Melchor Lazaro MD Symptoms: R06.02 - Shortness of breath Study Quality: Adequate ECG Rhythm: Sinus Conclusions: - Normal study Findings Left Ventricle Normal left ventricular size, thickness, and systolic function. The visually estimated ejection fraction is between 60-65%. Diastolic function is normal for age. Peak GLS is -21.2%, within normal limits Right Ventricle Normal right ventricular cavity size and systolic function. Atria Both atria are normal in size. There is no evidence of interatrial shunt. Aortic Valve Normal aortic valve structure and function. There is no aortic valve stenosis. There is no aortic valve regurgitation. Mitral Valve Normal mitral valve structure and function. There is trace mitral valve regurgitation. There is no mitral valve stenosis. Pulmonic Valve The pulmonic valve is likely normal. There is trace pulmonic valve regurgitation. Tricuspid Valve Normal tricuspid valve structure. Tricuspid regurgitation envelope is inadequate for calculation of right ventricular systolic pressure. Normal right atrial pressure. Great Vessels All visible segments of the aorta are normal in size. The pulmonary artery was not well visualized. Venous The inferior vena cava is normal in size and collapses greater than 50% with inspiration. Pericardium/Pleural There is no evidence of pericardial effusion. Prior Study Comparison No prior study available for comparison. Measurements 2D Linear Measurements IVSd: 0.66 0.6-0.9/0.6-1.0 cm LVIDd: 4.33 3.9-5.3/4.2-5.9 cm LVIDd Index: 2.62 2.4-3.2/2.2-3.1 cm/m2 LVIDs: 3.22 2.0-3.6 cm LVPWd: 0.59 0.7-1.1 cm LA Diam: 2.60 2.7-3.8/3.0-4.0 cm LAIDs Index: 1.58 1.5-2.3 cm/m2 LV Mass: 95.97 67-162/88-224 g LV Mass Index: 58.16 43-95/49-115 g/m2 LVOT Diam: 2.00 3.0+(-)1.3 cm 2D Systolic Function EF 4C: 57.80 >55% EF 2C: 57.80 >55% EF BiP: 56.60 >55% Mitral Valve MV Pk E: 0.60 MV PK A: 0.33 MV Decel Time: 213.00 E/A: 1.90 E'Lateral: 11.90 E'Medial: 8.38 E/E' Med: 7.20 E/E' Lat: 5.10 PHT: 62.00 MVA PHT: 3.55 Decel [place]: 2.83 Aortic Valve AoV Pk Maverick: 1.12 AoV Mn Maverick: 0.72 AoV VTI: 0.22 AoV Pk Grad: 5.00 Aov Mn Grad: 2.00 IRLANDA Cont.VTI: 2.24 LVOT LVOT Pk Maverick: 0.77 LVOT Mn Maverick: 0.50 LVOT VTI: 0.16 LVOT Pk Grad: 2.00 LVOT Mn Grad: 1.00 LVOT Diam: 2.00 LVOT Area: 3.14 Diastolic Function MV Pk E: 0.60 MV Pk A: 0.33 E/A: 1.90 E'Medial: 8.38 E/E' Med: 7.20 E' Laterial: 11.90 E/E' Lat: 5.10 Right Ventricle TAPSE (mm): 17.70 TVS' Maverick: 11.10 Tricuspid Valve RA Press: 3.00 Great Vessels Aorta Sinus of Valsalva: 2.43 2.0-3.5 cm Ao Asc: 2.30 2.1-3.4 cm Updated in Other Vendor System with Status of Final eMlchor Lazaro MD electronically signed on 04/18/2025 4:57:34 PM with status of Final
--- NOTE | 2025-04-17 07:48 | CA_ITS ---
Acquisition Time: 2025-04-17 08:54:44 Total Exercise Time: 00:06:36 Test Indications: Dyspnea,Lightheadedness Medications: NONE Protocol: CLAUDIA Max HR: 155 BPM 87% of Pred: 178 BPM Max BP: 130/58 mmHG Max Work Load: 7.9 METS Exercise stress test with exercise 6 mins 36 secs of Claudia Protocol, achieving 87% MPHR, with reports of 6/10 mid ches pressure and dizziness, without any arrythmias, with normotensive response to exercise. Without any EKG chnages meeting criteria for ischemia. In recovery, dizziness improved and chest pressure resolved quickly. Will order stress echo for further eval. Test reviewed with Dr. Lazaro. Referred By: Kishan Fatima Electronically Signed By: Tawanda Hodge
== END ==
LOC: HO.CARD 07:46
PROVIDERS: PCP Internal Medicine; Visit Provider Internal Medicine
DX: R07.2 Precordial pain (principal); R06.02 Shortness of breath
CPT/HCPCS: 93017; 93306

== ENCOUNTER → 2025-04-17 07:48 | Outpatient (BNV) | payer OTHER, SELFPAY | PROVIDERS: PCP Internal Medicine | DX: R07.89 Other chest pain (principal); R42 Dizziness and giddiness | CPT/HCPCS: 93016; 93018; 93306; 93356 ==

== ENCOUNTER → 2025-05-18 15:14 | Outpatient (BNV) | payer OTHER, SELFPAY | PROVIDERS: PCP Internal Medicine; Visit Provider Internal Medicine | DX: Z91.89 Other specified personal risk factors, not elsewhere classified (principal) | CPT/HCPCS: 77049 ==

== ENCOUNTER 2025-05-18 15:15 | Outpatient (REF) | payer OTHER, SELFPAY | END 2025-05-18 15:16 | disposition home or self-care (01) | LOC: HO.MRI 15:15 | PROVIDERS: PCP Internal Medicine; Visit Provider Surgery | DX: Z91.89 Other specified personal risk factors, not elsewhere classified (principal); R92.30 Dense breasts, unspecified; Z80.3 Family history of malignant neoplasm of breast | CPT/HCPCS: 77049; A9585 ==

== ENCOUNTER 2025-05-20 15:59 | Outpatient (REF) | payer OTHER, SELFPAY ==
--- NOTE | ~2025-05-20 | MR_ITS ---
EXAMINATION: MR BREAST WITHOUT AND WITH CONTRAST, BILATERAL CLINICAL INFORMATION: High risk strong family history of breast cancer mother and cousin. Dense fibroglandular breast tissue. COMPARISON: Comparison is made with relevant prior imaging. TECHNIQUE: MR imaging of the breast was performed using T1, T2 and fat saturated techniques. Dynamic multiphase imaging was also performed after the administration of intravenous gadolinium contrast agent. Computer generated 3D reconstruction and enhancement kinetic analysis was ulitized by the radiologist in the interpretation of this examination. FINDINGS: Breast composition: Heterogeneous fibroglandular breast tissue Background parenchymal enhancement: Marked LEFT BREAST: No suspicious enhancing masses or areas of non mass enhancement. No axillary or internal mammary adenopathy. RIGHT BREAST: No suspicious enhancing masses or areas of non mass enhancement. No axillary or internal mammary adenopathy. Limited views of the chest and abdomen are unremarkable. MR/MR breast BI wo/w con IMPRESSION: No MR specific evidence of malignancy. ASSESSMENT: LEFT BREAST: BI-RADS 1-Negative RIGHT BREAST: BI-RADS 1-Negative RECOMMENDATIONS: Yearly screening mammography Yearly Breast MRI screening surveillance. Electronically signed by: Christine Johnson DO 05/21/2025 04:29 PM EDT
== END 2025-05-20 16:00 | disposition home or self-care (01) ==
LOC: HO.MRI 15:59
PROVIDERS: PCP Internal Medicine; Visit Provider Surgery
DX: Z12.39 Encounter for other screening for malignant neoplasm of breast (principal); Z91.89 Other specified personal risk factors, not elsewhere classified; R92.30 Dense breasts, unspecified; Z80.3 Family history of malignant neoplasm of breast
CPT/HCPCS: 77049; A9585

== ENCOUNTER → 2025-05-20 16:00 | Outpatient (BNV) | payer OTHER, SELFPAY | PROVIDERS: PCP Internal Medicine; Visit Provider Internal Medicine | DX: R92.323 Mammographic fibroglandular density, bilateral breasts (principal); Z80.3 Family history of malignant neoplasm of breast | CPT/HCPCS: 77049 ==

== ENCOUNTER → 2025-05-30 10:24 | Outpatient (REF) | payer OTHER, SELFPAY ==
--- NOTE | 2025-05-30 10:27 | CA_ITS ---
Acquisition Time: 2025-05-30 11:16:01 Total Exercise Time: 00:07:19 Test Indications: Abnormal Treadmill Test,Syncope,Palpitations Medications: NONE Protocol: CLAUDIA Max HR: 179 BPM 100% of Pred: 178 BPM Max BP: 140/48 mmHG Max Work Load: 9.0 METS Exercise stress test with exercise 7 min 19 sec of Claudia protocol, acheiving 100% MPHR, with 1-2/10 mid chest discomfort, mild sob, without arrythmia, with normotensive response to exercise, with Baseline EKG showing borderline ST/T wave abnromality inferiorly, V5-V6 with no significant changes during exercise. Echo images obtained by [employer] at rest and immediately post peak exercise. Definity contrast used. In recovery her chest discomfort resolved. Test reviewed with Dr Fatima. Referred By: Tawanda Hodge Electronically Signed By: WENDY MELENDREZ
== END ==
LOC: HO.CARD 10:24
PROVIDERS: PCP Internal Medicine
DX: R07.9 Chest pain, unspecified (principal); R06.02 Shortness of breath; R55 Syncope and collapse; R00.2 Palpitations; R94.39 Abnormal result of other cardiovascular function study
CPT/HCPCS: 93350; Q9957

== ENCOUNTER → 2025-05-30 10:27 | Outpatient (BNV) | payer OTHER, SELFPAY | PROVIDERS: PCP Internal Medicine; Visit Provider Nurse Practitioner Family | DX: R07.89 Other chest pain (principal); R06.02 Shortness of breath | CPT/HCPCS: 93016; 93018; 93350; 93352 ==

== ENCOUNTER 2025-07-31 07:54 | Outpatient (AMB) | payer OTHER, SELFPAY ==
--- NOTE | 2025-07-31 08:17 | A.OFFVIS_ITS ---
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 She reports these symptoms have occurred for years, when shoveling snow in the winter, during which she feels like she is going to pass out and experiences a pounding sensation in her chest. She reports being able to perform other exercises like running with no concerning symptoms. Recent cardiac workup includes an echocardiogram which showed a normal ejection fraction of 60-65%, normal diastolic function, normal valves, and no wall motion abnormalities. An exercise stress echocardiogram demonstrated good exercise tolerance with reproduction of chest discomfort and mild shortness of breath, but no ischemic EKG changes and normal cardiac imaging before and after exercise. Her EKG shows borderline nonspecific ST and T wave abnormalities at baseline that did not change with exercise. The patient has a significant family history of heart disease; her mother was diagnosed with myocardial ischemia at a similar age, and her maternal grandmother having a heart attack in her 40s. Past medical history is notable for breast cancer surgery and thyroid testing between ages 8 and 16 for an inability to gain weight, which was unremarkable. She is not on any medications. [facility] Medical History Complex ovarian cyst Surgical History History of lumpectomy of right breast (04/06/22) History of excision of mass History of wisdom tooth extraction History of tonsillectomy History of ankle surgery History of elbow surgery Family History Father Diabetes Heart attack Mother Diabetes Tachycardia Breast cancer Maternal Aunt Breast cancer Maternal Aunt Breast cancer Maternal Aunt Breast cancer Social History Housing: House Alcohol intake: current Alcohol intake frequency: a few times a week Patient Tobacco Use Status: Former Tobacco user Years Smoked: 10 years e-Cigarette/Vaping Use: Never Used service: No Current occupational status: employed Cognitive needs: No Hearing needs: No Vision needs: No Female Reproductive History Menstrual Age of Menarche: 7 Review of Systems Const Details: sweating and chest discomfort, sob when shoveling only All systems reviewed & are unremarkable except as noted in HPI and below ENT Denies dizziness Card Denies chest pain, Denies chest pain at rest, Denies chest pain with activity, Denies rapid heart rate, Denies pedal edema, Denies edema, Denies leg edema, Denies lightheadedness, Denies palpitations, Denies dyspnea, Denies dyspnea on exertion and Denies orthopnea Resp Denies cough, Denies dyspnea and Denies dyspnea on exertion GI Denies hematochezia and Denies change in stool character Musc Denies abnormal gait, Denies limited range of motion, Denies muscle cramps, Denies muscle weakness, Denies numbness, Denies radiating pain into limb, Denies stiffness and Denies tingling Neuro Denies abnormal gait, Denies dizziness, Denies numbness and Denies tingling Endo Denies palpitations Physical Exam Vital Signs: Last Vital Signs Pulse 85 07/31/25 08:18 BP 100/62 07/31/25 08:18 BMI result Body Mass Index 24.2 Const General: cooperative, healthy appearing, comfortable and no acute distress Orientation/consciousness: patient oriented x3 Neck Neck: Yes normal visual inspection Resp Effort & Inspection: normal respiratory effort Auscultation: clear to auscultation bilaterally, no rales, no rhonchi and no wheezes Cardio Rate: regular rate Rhythm: regular rhythm Heart sounds: S1 normal heart sound present, S2 normal heart sound present, no gallops, no murmurs and no rubs Neuro General: patient oriented x3 Extrem General: Yes normal to inspection, No no pedal edema and No calf tenderness Psych Appearance: grossly normal Mental Status: mental status grossly normal Speech and movement: Normal speech and movement present Assessment & Plan Assessment & Plan (1) Atypical chest pain: Code(s): R07.89 - Other chest pain Category: Medical Plan: Symptoms of atypical chest discomfort, heart palpitations and shortness of breath with sweating occurring only with shoveling, for the last several years, not occurring with other physical/exertional activities. Cardiac testing shows no clear contributing findings. Signs and symptoms of angina discussed. Cardiology follow-up PRN (2) Palpitations: Code(s): R00.2 - Palpitations Category: Medical (3) SOB (shortness of breath): Code(s): R06.02 - Shortness of breath Category: Medical Plan I had a detailed discussion with the patient regarding her cardiac symptoms and recent workup. I explained that her echocardiogram and stress echocardiogram were very reassuring, showing a structurally normal heart with strong function and no evidence of blockages or ischemia, despite the chest discomfort she experienced during the test. I clarified that her EKG showed nonspecific ST-T wave abnormalities, explaining that these did not meet the criteria for true ischemia (impaired blood flow) and could be a normal variant for her. I acknowledged her significant family history of heart disease but reassured her that her current testing is negative. We discussed that her symptoms, being isolated to shoveling, are atypical for coronary artery disease since they do not occur with any other exertional activity. I offered the option of wearing a heart monitor to investigate for a rhythm issue, but we agreed on an as-needed follow-up plan for now. I advised her to return if her symptoms worsen, become more frequent, or occur with other activities, at which point we could consider a CT scan of her heart arteries. I provided her with a copy of her EKG for her records. The patient expressed a better understanding of her condition and appeared reassured. Patient Instructions: - Your recent heart tests, including an ultrasound and an exercise stress test, were normal and do not show any concerning blockages in your heart arteries. - Make sure you drink plenty of water to stay hydrated, especially when doing strenuous activities. - You have the option to wear a heart monitor to check your heart's rhythm if you experience palpitations again. - Please return to the clinic for a follow-up visit if your symptoms get worse, happen more often, or start to occur with activities other than shoveling. - If symptoms change, we may consider getting a CT scan of your heart arteries in the future. Patient was informed and verbally consented to the use of an ambient scribe for clinic note documentation during this visit. Visit time spent on chart review, interview, assessment, orders, documentation. Coding Level of Care Code Est Pt Level 4 (61091) Complex visit Add On G2211 Diagnoses Atypical chest pain R07.89 Palpitations R00.2 SOB (shortness of breath) R06.02 Time Spent (min) 32
[2025-07-31 08:18] VITALS: BP 100/62; PULSE 85; BMI 24.2
== END 2025-07-31 08:54 | disposition home or self-care (01) ==
LOC: HO.HCS 07:54
PROVIDERS: PCP Internal Medicine; Visit Provider Nurse Practitioner Family
DX: R07.89 Other chest pain (principal); R00.2 Palpitations; R06.02 Shortness of breath
CPT/HCPCS: 99214